=== PATIENT | female | born 1965 | race American Indian/Alaskan Native ===

== ENCOUNTER 2017-01-12 22:21 | Emergency (ER) | payer MEDICARE ==
[2017-01-12 22:58] LABS: Basophils % (Auto) 0.5 % (0.0-1.8); Eosinophils % (Auto) 2.2 % (0.0-4.3); Hematocrit 39.1 % (30.3-42.9); Hemoglobin 12.9 gm/dl (10.1-14.3); Mean Corpuscular HGB Conc 33 % (30-34); Mean Corpuscular Hemoglobin 29 pg (28-32); Mean Corpuscular Volume 89 fl (79-97); Platelet Count 234 K/mm3 (140-440); Red Blood Count 4.39 M/mm3 (3.65-5.03); Red Cell Distribution Width 12.8 % (13.2-15.2); White Blood Count 9.2 K/mm3 (4.5-11.0)
[2017-01-12 23:18] LABS: Anion Gap 19 mmol/L; BUN/Creatinine Ratio 18.33; Blood Urea Nitrogen 11 mg/dL (7-17); Calcium 9.1 mg/dL (8.4-10.2); Carbon Dioxide 22 mmol/L (22-30); Chloride 101.5 mmol/L (98-107); Glucose 156 mg/dL (65-100); Potassium 3.2 mmol/L (3.6-5.0); Sodium 139 mmol/L (137-145)
[2017-01-13 01:35] VITALS: BP 113/70
--- NOTE | 2017-01-13 01:43 | Emergency Department Report ---
ED Shortness of Breath HPI - General Chief Complaint: Dyspnea/Respdistress Stated Complaint: CP/YUAN/BACK PAIN/DRY MOUTH Time Seen by Provider: 01/13/17 01:30 Source: patient Mode of arrival: Ambulatory Limitations: No Limitations - History of Present Illness Initial Comments: This is a 51-year-old female who reports pains on her upper chest wall and the right than the left over the last week or so. She does report increased stressors over the last week as well. She was actually in [place] last week and was hospitalized for 2 days due to her chest wall discomfort. She did have CTA chest performed which was negative for PE or any specific pathology. She did have cardiac stress testing done as well. This was done chemically. She indicated that she developed a rash after having the Chemical injection. She' ll totally signed out AMA due to needing to get home for an important family event. She returns now to the ED to continue the workup. She states she continues to have the same pains in her chest wall region. She states they're intermittent. She states they're worse with movement of her arms and chest in general. She states they are more tender to palpation as well. Stop Aleve could be musculoskeletal but she is not able to take NSAIDs due to peptic ulcer disease. She reports that she doesn't currently have a physician she follows with regularly. She has been taking Tums for her peptic ulcer pain. She states that she has never been on H2 blockers or proton pump inhibitors. She has never had endoscopy either. From a cardiac standpoint patient indicates that she has no family history of heart disease. She personally has no history as well. She denies any history of hypertension or diabetes as well. - Related Data Previous Rx's Medication Instructions Recorded Last Taken Type Loratadine [Claritin] 10 mg PO DAILY #30 tablet 01/13/17 Unknown Rx Omeprazole 40 mg PO DAILY #30 capsule. 01/13/17 Unknown Rx Allergies Allergy/AdvReac Type Severity Reaction Status Date / Time diphenhydramine HCl Allergy Unknown Verified 01/13/17 01:32 [From Benadryl] Iodinated Contrast Media - Allergy Unknown Verified 01/13/17 01:33 IV Dye ketorolac tromethamine Allergy Unknown Verified 01/13/17 01:32 [From Toradol] ED Review of Systems ROS: Stated complaint: CP/YUAN/BACK PAIN/DRY MOUTH Other details as noted in HPI Comment: All other systems reviewed and negative Constitutional: denies: chills, fever Eyes: denies: eye pain, eye discharge, vision change ENT: denies: ear pain, throat pain Respiratory: denies: cough, shortness of breath, wheezing Cardiovascular: chest pain. denies: palpitations Endocrine: no symptoms reported Gastrointestinal: abdominal pain. denies: nausea, diarrhea Genitourinary: denies: urgency, dysuria, discharge Musculoskeletal: denies: back pain, joint swelling, arthralgia Skin: rash. denies: lesions Neurological: denies: headache, weakness, paresthesias Psychiatric: denies: anxiety, depression Hematological/Lymphatic: denies: easy bleeding, easy bruising ED Past Medical Hx - Past Medical History Previous Medical History?: Yes Hx Headaches / Migraines: Yes Additional medical history: Multiple sclerosis, high cholesterol - Surgical History Past Surgical History?: Yes Additional Surgical History: hysterectomy - Social History Smoking Status: Never Smoker Substance Use Type: Alcohol - Medications Home Medications: Home Medications Medication Instructions Recorded Confirmed Last Taken Type Loratadine [Claritin] 10 mg PO DAILY #30 tablet 01/13/17 Unknown Rx Omeprazole 40 mg PO DAILY #30 capsule. 01/13/17 Unknown Rx ED Physical Exam - General Limitations: No Limitations General appearance: alert, in no apparent distress - Head Head exam: Present: atraumatic, normocephalic - Eye Eye exam: Present: normal appearance, EOMI. Absent: scleral icterus - ENT ENT exam: Present: normal exam, normal orophraynx, mucous membranes moist - Neck Neck exam: Present: normal inspection. Absent: tenderness, lymphadenopathy - Respiratory Respiratory exam: Present: normal lung sounds bilaterally. Absent: respiratory distress, wheezes - Cardiovascular Cardiovascular Exam: Present: regular rate, normal rhythm, other (mild tenderness to palpation in the right and upper left chest wall regions. No bony step-off or crepitance noted. No ecchymoses noted.). Absent: systolic murmur, diastolic murmur, rubs, gallop - GI/Abdominal GI/Abdominal exam: Present: soft, normal bowel sounds. Absent: tenderness, guarding - Extremities Exam Extremities exam: Present: normal inspection, full ROM, normal capillary refill. Absent: tenderness, pedal edema, calf tenderness - Back Exam Back exam: Present: normal inspection. Absent: tenderness, CVA tenderness (R), CVA tenderness (L), muscle spasm - Neurological Exam Neurological exam: Present: alert, oriented X3, normal gait - Psychiatric Psychiatric exam: Present: normal affect, normal mood - Skin Skin exam: Present: warm, dry, intact, normal color. Absent: rash ED Course Vital Signs 01/12/17 01/13/17 01/13/17 22:50 01:34 01:35 Temperature 98.3 F 98.1 F Pulse Rate 81 73 Respiratory 18 20 20 Rate Blood Pressure 109/87 Blood Pressure 113/70 [Left] O2 Sat by Pulse 99 96 96 Oximetry - Reevaluation(s) Reevaluation #1: 01/13/17 01:31 EKG at 2232 with sinus rhythm at 75 bpm with normal VA and QRS. Normal ECG. Reevaluation #2: 01/13/17 19:31 Patient does endorse history of lupus. I'm highly suspicious given her presentation that she is having mostly yellow skeletal manifestations of her lupus. This does put her at higher risk for PE as well as cardiac disease. She did have CTA done last week which was negative. She actually is a [place] negative as well. My suspicion is very low for PE as well. From a cardiac standpoint, ECG is unremarkable here. Enzymes are negative. Her presentation does not seem consistent with an ACS presentation. I have a very low suspicion for cardiac etiology. I did encourage the patient compliant with some type of ulcer medication. I did prescribe her omeprazole here today. I did encourage her to follow up with a primary physician for continued care. I did give her several referrals as well. I do have some suspicion of possible psychiatric component with her presentation as well and did encourage relaxation techniques of some type as well. In regards to her lupus, I do not fill qualified to really way and further. I did encourage her to follow up with her primary doctor as well as potentially a manager switch for further evaluation and care of this. For now we'll treat her pain with Tylenol. He is agreeable and compliant with this. ED Medical Decision Making - Lab Data Result diagrams: 01/12/17 22:45 01/12/17 22:45 - Radiology Data interpreted by me: negative Critical care attestation.: If time is entered above; I have spent that time in minutes in the direct care of this critically ill patient, excluding procedure time. ED Disposition Clinical Impression: Chest wall pain, Allergic reaction caused by a drug, Peptic ulcer Disposition: DISCHARGED TO HOME OR SELFCARE Is pt being admited?: No Does the pt Need Aspirin: No Condition: Stable Additional Instructions: Take tylenol as needed for chest pains. Take the claritin for your itchiness. Prescriptions: Loratadine [Claritin] 10 mg PO DAILY #30 tablet Omeprazole 40 mg PO DAILY #30 capsule. Referrals: [facility] [Provider Group] - 3-5 Days [facility] [Provider Group] - 3-5 Days Time of Disposition: 01:53
[2017-01-13] MEDS ORDERED: CLARITIN PO ONE (01:49)
--- NOTE | 2017-01-13 08:16 | XRay Report ---
CHEST 2 VIEWS INDICATION: Shortness of breath. COMPARISON: None similar at this institution. FINDINGS: PA and lateral chest radiographs demonstrate normal cardiomediastinal silhouette. Clear lungs. Intact bones. CONCLUSION: No acute disease in the chest. Thank you for the opportunity to participate in this patient's care.
== END 2017-01-13 02:24 | disposition home or self-care (01) ==
LOC: ED 22:21
DX: T50.905A Adverse effect of unspecified drugs, medicaments and biological substances, initial encounter (principal); R07.89 Other chest pain; K27.9 Peptic ulcer, site unspecified, unspecified as acute or chronic, without hemorrhage or perforation; G43.909 Migraine, unspecified, not intractable, without status migrainosus; E78.00 Pure hypercholesterolemia, unspecified; Z90.710 Acquired absence of both cervix and uterus; Z91.041 Radiographic dye allergy status; Z88.8 Allergy status to other drugs, medicaments and biological substances; Y92.89 Other specified places as the place of occurrence of the external cause
CPT/HCPCS: 36415; 71020; 80048; 84484; 85025; 93005; 93010; 99285

== ENCOUNTER 2017-04-21 21:02 | Emergency (ER) | payer MEDICARE ==
[2017-04-21] MEDS ORDERED: ZOFRAN ONE (21:25)
[2017-04-21] MEDS ORDERED: ZOFRAN IV ONE (21:39)
--- NOTE | 2017-04-22 06:11 | Cat Scan Report ---
FINAL REPORT PROCEDURE: CT HEAD/BRAIN WO CON TECHNIQUE: Computerized tomography of the head was performed without contrast material. HISTORY: headache COMPARISON: No prior studies are available for comparison. FINDINGS: Skull and scalp: Normal. Paranasal sinuses: Normal. Ventricles and subarachnoid spaces: Normal. Cerebrum: No evidence of hemorrhage, acute infarction or mass . Cerebellum and brainstem: No evidence of hemorrhage, acute infarction or mass. Vasculature: Normal. Comments: None. IMPRESSION: There is no evidence of an acute intracranial process
[2017-04-22] MEDS ORDERED: REGLAN IV ONE (08:05)
[2017-04-22] MEDS ORDERED: NACL 0.9% 1000 ML 1,000 ML IV ONE (08:05)
[2017-04-22] MEDS ORDERED: MORPHINE IV ONE (08:05)
--- NOTE | 2017-04-22 09:49 | Emergency Department Report ---
ED Headache HPI - General Chief Complaint: Headache Stated Complaint: MIGRAINE/N/V Source: patient, RN notes reviewed Exam Limitations: no limitations - History of Present Illness Initial Comments: 52 year old female presents to ED with headache and history of migraines. patient states this feels like her typical migraine but worst than the normal pain. patient also states she has N/V and photophobia which she states are regular migraine symptoms for her. patient is stable, neurologically intact, ambulatory with normal gait and in no acute distress. patient has had CT head ordered and performed by triage. Timing/Duration: other (3 days) Quality: moderate, constant, throbbing Head Injury Location: temporal, occipital Recent Head Trauma: chronic headaches, other (history of migraines) Associated Symptoms: nausea/vomiting. denies: confusion, fatigue, facial pain, fever/chills, flushing, loss of consciousness, nasal congestion, nasal drainage , numbness in legs/feet, rash, seizures, sinus infection, stiff neck, vision changes, weakness Allergies/Adverse Reactions: Allergies carisoprodol [From Soma] Allergy (Verified 04/21/17 21:24) Unknown diphenhydramine HCl [From Benadryl] Allergy (Verified 01/13/17 01:32) Unknown ketorolac tromethamine [From Toradol] Allergy (Verified 01/13/17 01:32) Unknown Home Medications: Ambulatory Orders Loratadine [Claritin] 10 mg PO DAILY #30 tablet 01/13/17 Omeprazole 40 mg PO DAILY #30 capsule. 01/13/17 Butalb/Acetamin/Caff 50-325-40 [Fioricet] 1 tab PO Q6HR PRN #20 tab 04/22/17 Ondansetron [Zofran Odt] 4 mg PO BID #10 tab.rapdis 04/22/17 ED Review of Systems ROS: Stated complaint: MIGRAINE/N/V Other details as noted in HPI Constitutional: denies: chills, fever Eyes: denies: eye pain, eye discharge, vision change ENT: denies: ear pain, throat pain Respiratory: denies: cough, shortness of breath, wheezing Cardiovascular: denies: chest pain, palpitations Endocrine: no symptoms reported Gastrointestinal: nausea, vomiting. denies: abdominal pain, diarrhea Genitourinary: denies: urgency, dysuria, discharge Musculoskeletal: denies: back pain, joint swelling, arthralgia Skin: denies: rash, lesions Neurological: headache. denies: weakness, numbness, paresthesias, confusion, abnormal gait, vertigo Psychiatric: denies: anxiety, depression Hematological/Lymphatic: denies: easy bleeding, easy bruising ED Past Medical Hx - Past Medical History Previous Medical History?: Yes Hx Diabetes: Yes (boderline) Hx Headaches / Migraines: Yes Additional medical history: Multiple sclerosis, high cholesterol, Shingles6 - Surgical History Past Surgical History?: Yes Additional Surgical History: hysterectomy. Bladder tact - Social History Smoking Status: Never Smoker Substance Use Type: None - Medications Home Medications: Home Medications Medication Instructions Recorded Confirmed Last Taken Type Loratadine [Claritin] 10 mg PO DAILY #30 tablet 01/13/17 Unknown Rx Omeprazole 40 mg PO DAILY #30 capsule.dr 01/13/17 Unknown Rx Butalb/Acetamin/Caff 50-325-40 1 tab PO Q6HR PRN #20 tab 04/22/17 Unknown Rx [Fioricet] Ondansetron [Zofran Odt] 4 mg PO BID #10 tab.rapdis 04/22/17 Unknown Rx ED Physical Exam - General Limitations: No Limitations General appearance: alert, in no apparent distress - Head Head exam: Present: atraumatic, normocephalic - Eye Eye exam: Present: normal appearance, PERRL, EOMI - ENT ENT exam: Present: normal exam, mucous membranes moist - Neck Neck exam: Present: normal inspection - Respiratory Respiratory exam: Present: normal lung sounds bilaterally. Absent: respiratory distress - Cardiovascular Cardiovascular Exam: Present: regular rate, normal rhythm. Absent: systolic murmur, diastolic murmur, rubs, gallop - GI/Abdominal GI/Abdominal exam: Present: soft, normal bowel sounds. Absent: distended, tenderness - Extremities Exam Extremities exam: Present: normal inspection, full ROM - Back Exam Back exam: Present: normal inspection, full ROM - Neurological Exam Neurological exam: Present: alert, oriented X3, normal gait - Expanded Neurological Exam Expanded Neurological exam: Absent: innattentive Patient oriented to: Present: person, place, time Speech: Present: fluid speech Cranial nerves: EOM's Intact: Normal, Tongue Deviation: Normal, Facial Sensation : Normal Cerebellar function: Finger to Nose: Normal Upper motor neuron: Pronator Drift: Normal Sensory exam: Upper Extremity Light Touch: Normal, Lower Extremity Light Touch: Normal Motor strength exam: RUE: 5, LUE: 5, RLE: 5, LLE: 5 DTR: knee (R): 2+, knee (L): 2+ Best Eye Response ([place]): (4) open spontaneously Best Motor Response ([place]): (6) obeys commands Best Verbal Response ([place]): (5) oriented [place] Total: 15 - Psychiatric Psychiatric exam: Present: normal affect, normal mood - Skin Skin exam: Present: warm, dry, intact, normal color. Absent: rash ED Course Vital Signs 04/21/17 04/22/17 04/22/17 21:16 06:26 08:27 Temperature 98.6 F Pulse Rate 94 H 59 L Respiratory 18 16 16 Rate Blood Pressure 153/100 Blood Pressure 119/68 [Right] O2 Sat by Pulse 97 99 Oximetry ED Medical Decision Making - Radiology Data Radiology results: report reviewed CT brain No evidence of acute intracranial process. - Medical Decision Making 52 year old female presents to ED with migraine x3days. patient has negative imaging study of brain. patient has had 1L of normal saline fluids, antiemetics and IV pain medication. patient is stable, neurologically intact and in no acute distress. patient states her pain has decreased in nature after pain medication and fluids. Critical care attestation.: If time is entered above; I have spent that time in minutes in the direct care of this critically ill patient, excluding procedure time. ED Disposition Clinical Impression: Migraine Qualifiers: Migraine type: with aura Status migrainosus presence: with status migrainosus Intractability: not intractable Qualified Code(s): G43.101 - Migraine with aura , not intractable, with status migrainosus Disposition: DC-01 TO HOME OR SELFCARE Is pt being admited?: No Does the pt Need Aspirin: No Condition: Stable Instructions: Migraine Headache (ED) Prescriptions: Butalb/Acetamin/Caff 50-325-40 [Fioricet] 1 tab PO Q6HR PRN #20 tab PRN Reason: Headache Ondansetron [Zofran Odt] 4 mg PO BID #10 tab.rapdis Referrals: PRIMARY CARE, [Primary Care Provider] - 3-5 Days Forms: Work/School Release Form(ED)
[2017-04-22 09:56] VITALS: BP 116/71
== END 2017-04-22 09:54 | disposition home or self-care (01) ==
LOC: ED 21:02
DX: G43.909 Migraine, unspecified, not intractable, without status migrainosus (principal); E78.00 Pure hypercholesterolemia, unspecified; Z88.6 Allergy status to analgesic agent; Z88.8 Allergy status to other drugs, medicaments and biological substances
CPT/HCPCS: 70450; 96361; 96374; 96375; 99284; J2270; J2405; J2765; J7030

== ENCOUNTER 2017-05-31 01:29 | Emergency (ER) | payer MEDICARE ==
[2017-05-31 02:17] LABS: Alanine Aminotransferase 14 units/L (7-56); Albumin 4.5 g/dL (3.9-5); Albumin/Globulin Ratio 1.3 %; Alkaline Phosphatase 103 units/L (35-129); Anion Gap 24 mmol/L; Blood Urea Nitrogen 28 mg/dL (7-17); Calcium 9.8 mg/dL (8.4-10.2); Carbon Dioxide 20 mmol/L (22-30); Chloride 97.3 mmol/L (98-107); Glucose 90 mg/dL (65-100); Lipase 35 units/L (13-60); Potassium 3.7 mmol/L (3.6-5.0); Sodium 138 mmol/L (137-145); Total Protein 7.9 g/dL (6.3-8.2)
[2017-05-31 02:19] LABS: Basophils % (Auto) 0.9 % (0.0-1.8); Eosinophils % (Auto) 0.4 % (0.0-4.3); Hematocrit 41.9 % (30.3-42.9); Hemoglobin 14.3 gm/dl (10.1-14.3); Mean Corpuscular HGB Conc 34 % (30-34); Mean Corpuscular Hemoglobin 30 pg (28-32); Mean Corpuscular Volume 88 fl (79-97); Platelet Count 252 K/mm3 (140-440); Red Blood Count 4.77 M/mm3 (3.65-5.03); Red Cell Distribution Width 13.1 % (13.2-15.2); White Blood Count 8.1 K/mm3 (4.5-11.0)
[2017-05-31] MEDS ORDERED: ZOFRAN IV ONE (06:32)
[2017-05-31] MEDS ORDERED: NACL 0.9% 1000 ML 1,000 ML IV ONE (06:32)
[2017-05-31] MEDS ORDERED: PEPCID IV ONE (06:33)
--- NOTE | 2017-05-31 07:30 | Emergency Department Report ---
ED General Adult HPI - General Chief complaint: Abdominal Pain Stated complaint: ABD PAIN Time Seen by Provider: 05/31/17 06:15 Source: patient Mode of arrival: Wheelchair Limitations: No Limitations - History of Present Illness Initial comments: Patient is a 52-year-old female past medical history of migraine and multiple sclerosis who presents with abdominal pain. Patient states that she has generalized abdominal pain is an 8 out of 10 and is constant and it has been going on for 1 month. She says nothing makes the abdominal pain better but taking caffeine makes it worse. She states that she is also having some nausea and vomiting. Mom has been nonbloody and nonbilious. She states that she feels like this is an exacerbation of her abdominal pain that she previously had. She's had a CT scan last week. Which was unrevealing. Patient denies having any other symptoms. Severity scale (0 -10): 2 - Related Data Previous Rx's Medication Instructions Recorded Last Taken Type Loratadine [Claritin] 10 mg PO DAILY #30 tablet 01/13/17 Unknown Rx Omeprazole 40 mg PO DAILY #30 capsule. 01/13/17 Unknown Rx Butalb/Acetamin/Caff 50-325-40 1 tab PO Q6HR PRN #20 tab 04/22/17 Unknown Rx [Fioricet] Ondansetron [Zofran Odt] 4 mg PO BID #10 tab.rapdis 04/22/17 Unknown Rx Allergies Allergy/AdvReac Type Severity Reaction Status Date / Time carisoprodol [From Soma] Allergy Unknown Verified 04/21/17 21:24 diphenhydramine HCl Allergy Unknown Verified 01/13/17 01:32 [From Benadryl] ketorolac tromethamine Allergy Unknown Verified 01/13/17 01:32 [From Toradol] ED Review of Systems ROS: Stated complaint: ABD PAIN Other details as noted in HPI Constitutional: denies: chills, fever Eyes: denies: eye pain, eye discharge, vision change ENT: denies: ear pain, throat pain Respiratory: denies: cough, shortness of breath, wheezing Cardiovascular: denies: chest pain, palpitations Endocrine: no symptoms reported Gastrointestinal: abdominal pain, nausea, vomiting Genitourinary: denies: urgency, dysuria, discharge Musculoskeletal: denies: back pain, joint swelling, arthralgia Skin: denies: rash, lesions Neurological: denies: headache, weakness, paresthesias Psychiatric: denies: anxiety, depression Hematological/Lymphatic: denies: easy bleeding, easy bruising ED Past Medical Hx - Past Medical History Previous Medical History?: Yes Hx Diabetes: Yes (boderline) Hx Headaches / Migraines: Yes Additional medical history: Multiple sclerosis, high cholesterol, Shingles6 - Surgical History Past Surgical History?: Yes Additional Surgical History: hysterectomy. Bladder tact - Social History Smoking Status: Never Smoker Substance Use Type: None - Medications Home Medications: Home Medications Medication Instructions Recorded Confirmed Last Taken Type Loratadine [Claritin] 10 mg PO DAILY #30 tablet 01/13/17 Unknown Rx Omeprazole 40 mg PO DAILY #30 capsule.dr 01/13/17 Unknown Rx Butalb/Acetamin/Caff 50-325-40 1 tab PO Q6HR PRN #20 tab 04/22/17 Unknown Rx [Fioricet] Ondansetron [Zofran Odt] 4 mg PO BID #10 tab.rapdis 04/22/17 Unknown Rx ED Physical Exam - General Limitations: No Limitations General appearance: alert, in no apparent distress - Head Head exam: Present: atraumatic, normocephalic - Eye Eye exam: Present: normal appearance - ENT ENT exam: Present: mucous membranes moist - Neck Neck exam: Present: normal inspection - Respiratory Respiratory exam: Present: normal lung sounds bilaterally. Absent: respiratory distress - Cardiovascular Cardiovascular Exam: Present: regular rate, normal rhythm. Absent: systolic murmur, diastolic murmur, rubs, gallop - GI/Abdominal GI/Abdominal exam: Present: soft, normal bowel sounds - Extremities Exam Extremities exam: Present: normal inspection - Back Exam Back exam: Present: normal inspection - Neurological Exam Neurological exam: Present: alert, oriented X3 - Psychiatric Psychiatric exam: Present: normal affect, normal mood - Skin Skin exam: Present: warm, dry, intact, normal color. Absent: rash ED Course Vital Signs 05/31/17 05/31/17 05/31/17 01:33 06:38 06:39 Temperature 99.3 F Pulse Rate 91 H 86 Respiratory 16 18 18 Rate Blood Pressure 113/84 Blood Pressure 118/81 [Right] O2 Sat by Pulse 100 98 Oximetry 05/31/17 08:00 Temperature 98.5 F Pulse Rate 79 Respiratory 18 Rate Blood Pressure Blood Pressure 114/61 [Right] O2 Sat by Pulse 100 Oximetry - Reevaluation(s) Reevaluation #1: 05/31/17 07:30 Patient states that she is nauseous and feels dry I will give patient IV fluids , antiemetics and Pepcid. Reevaluation #2: 05/31/17 09:33 Patient states that she is feeling better I will send patient home to follow up with her primary care provider. ED Medical Decision Making - Lab Data Result diagrams: 05/31/17 01:40 05/31/17 01:40 Laboratory Results - last 72 hr 05/31/17 05/31/17 05/31/17 01:40 01:40 01:40 WBC 8.1 RBC 4.77 Hgb 14.3 Hct 41.9 MCV 88 MCH 30 MCHC 34 RDW 13.1 L Plt Count 252 Lymph % (Auto) 30.6 [facility] [facility] % (Auto) 8.1 H Eos % (Auto) 0.4 Baso % (Auto) 0.9 Lymph # 2.5 [facility] # 0.7 Eos # 0.0 Baso # 0.1 Seg Neutrophils % 60.0 Seg Neutrophils # 4.8 Sodium 138 Potassium 3.7 Chloride 97.3 L Carbon Dioxide 20 L Anion Gap 24 BUN 28 H Creatinine 0.5 L Estimated GFR > 60 BUN/Creatinine Ratio 56.00 Glucose 90 Calcium 9.8 Total Bilirubin 1.10 AST 15 ALT 14 Alkaline Phosphatase 103 Total Protein 7.9 Albumin 4.5 Albumin/Globulin Ratio 1.3 Lipase 35 HCG, Qual Negative - Medical Decision Making Chief medical diagnosis: GERD Differential medical diagnosis: Gastroenteritis, hypokalemia, pancreatitis, hypoglycemia, dehydration, UTI I will get a CBC, CMP, urinalysis, urine , lipase, IV fluids, IV antiemetics and IV Pepcid Patient's symptoms seem to be exacerbation of her chronic abdominal pain and GERD will hydrate and will reassess Critical care attestation.: If time is entered above; I have spent that time in minutes in the direct care of this critically ill patient, excluding procedure time. ED Disposition Clinical Impression: Abdominal pain Qualifiers: Abdominal location: generalized Qualified Code(s): R10.84 - Generalized abdominal pain Nausea and vomiting Qualifiers: Vomiting type: unspecified Vomiting Intractability: unspecified Qualified Code( s): R11.2 - Nausea with vomiting, unspecified Disposition: DC-01 TO HOME OR SELFCARE Is pt being admited?: No Does the pt Need Aspirin: No Condition: Stable Instructions: Abdominal Pain (ED) Referrals: PRIMARY CARE, [Primary Care Provider] - 3-5 Days Time of Disposition: 09:34
[2017-05-31 08:36] VITALS: BP 114/61
== END 2017-05-31 09:50 | disposition home or self-care (01) ==
LOC: ED 01:29
DX: R10.84 Generalized abdominal pain (principal); R11.2 Nausea with vomiting, unspecified; E11.9 Type 2 diabetes mellitus without complications; G43.909 Migraine, unspecified, not intractable, without status migrainosus; E78.00 Pure hypercholesterolemia, unspecified; Z88.8 Allergy status to other drugs, medicaments and biological substances
CPT/HCPCS: 36415; 80053; 83690; 84703; 85025; 96361; 96374; 96375; 99284; J2405; J7030

== ENCOUNTER 2018-02-07 07:02 | Emergency (ER) | payer MEDICARE ==
[2018-02-07 07:46] LABS: Basophils % (Auto) 0.8 % (0.0-1.8); Eosinophils # (Auto) 0.2 K/mm3 (0.0-0.4); Eosinophils % (Auto) 3.3 % (0.0-4.3); Hematocrit 40.2 % (30.3-42.9); Hemoglobin 13.8 gm/dl (10.1-14.3); Lymphocytes # (Auto) 2.6 K/mm3 (1.2-5.4); Mean Corpuscular HGB Conc 34 % (30-34); Mean Corpuscular Hemoglobin 29 pg (28-32); Mean Corpuscular Volume 86 fl (79-97); Monocytes # (Auto) 0.5 K/mm3 (0.0-0.8); Monocytes % (Auto) 9.2 % (0.0-7.3); Platelet Count 192 K/mm3 (140-440); Red Blood Count 4.69 M/mm3 (3.65-5.03); Red Cell Distribution Width 12.6 % (13.2-15.2)
[2018-02-07 08:03] LABS: Alanine Aminotransferase 74 units/L (7-56); Albumin 3.5 g/dL (3.9-5); BUN/Creatinine Ratio 43; Blood Urea Nitrogen 13 mg/dL (7-17); Calcium 9.6 mg/dL (8.4-10.2); Hemolysis Index 13
[2018-02-07] MEDS ORDERED: K-DUR PO ONE (10:36)
--- NOTE | 2018-02-07 10:36 | Emergency Department Report ---
Chief Complaint: Abdominal Pain Stated Complaint: ABD PAIN Time Seen by Provider: 02/07/18 10:28 - HPI History of Present Illness: 52-year-old female presents to the emergency department with complaint of a 2 week history of some body aches, dysuria, lower abdominal discomfort with intermittent constipation and/or diarrhea. She denies any fever, nausea, vomiting, chest pain or shortness of breath. She has a history of multiple sclerosis. She recently moved here from [place] and therefore does not have any local primary care physician or neurologist. She has tried Tylenol for her symptoms without much relief. - ROS Review of Systems: Positive for generalized body aches, abdominal pain, intermittent diarrhea and constipation Negative for fever, nausea, vomiting, chest pain, shortness of breath - Exam Vital Signs: Vital Signs 02/07/18 07:11 Temperature 97.5 F L Pulse Rate 103 H Blood Pressure 147/88 O2 Sat by Pulse 98 Oximetry Physical Exam: Patient is awake and alert and does not appear in any acute distress. Heart and lungs sounds are normal to auscultation. She has some mild tenderness to palpation to the lower abdomen. Bowel sounds are regular. MSE screening note: Focused history and physical exam performed. Due to findings the following was ordered: The patient already has a CBC and a BMP. She appears to have some hypokalemia that will be replaced with potassium chloride. We're waiting for a urinalysis. She will get a abdominal x-ray. ED Medical Decision Making - Lab Data Result diagrams: 02/07/18 07:28 02/07/18 07:28 ED Disposition for MSE Condition: Stable Instructions: Abdominal Pain (ED) Referrals: PRIMARY CARE, [Primary Care Provider] - 3-5 Days
--- NOTE | 2018-02-07 10:45 | Emergency Department Report ---
ED Abdominal Pain HPI - General Chief Complaint: Abdominal Pain Stated Complaint: ABD PAIN Time Seen by Provider: 02/07/18 10:28 Source: patient Mode of arrival: Ambulatory Limitations: No Limitations - History of Present Illness Initial Comments: 52-year-old female presents to the emergency department with complaint of a 2 week history of some body aches, dysuria, lower abdominal discomfort with intermittent constipation and/or diarrhea. She denies any fever, nausea, vomiting, chest pain or shortness of breath. She has a history of multiple sclerosis. She recently moved here from [place] and therefore does not have any local primary care physician or neurologist. She has tried Tylenol for her symptoms without much relief. Patient says she has a history of chronic constipation. She denies any fever or chills. She denies any feeling of her MS flareup. Pain is 4 out of 10 to a abdomen cramping. She denies any back pain.. Patient said she was seen by her primary care physician here once he was a man and she thinks that he did not like her so she didn't go back. Call when her last bowel movement was. Patient reports that her only medical history is multiple sclerosis, high cholesterol and she has a history of shingles. History of bladder talk with hysterectomy. Pain comes and goes nothing makes it better and nothing makes it worse. She says she had a colonoscopy last year when she turned 51 in [place] and it was normal. Complaint: abdominal pain, other (constipation) Onset/Timin -: week(s) Location: diffuse Radiation: none Severity: moderate Severity scale (0 -10): 5 Quality: cramping Consistency: intermittent Improves With: nothing Worsens With: nothing Context: other (patient reports constipation that has been ongoing for years. she says she probably have a urinary tract infection. She is also reporting that she has MS and states she needs to be started on steroid) Associated Symptoms: diarrhea, constipation. denies: nausea, vomiting, fever, chills, dysuria, hematemesis, hematochezia, melena, hematuria, anorexia, syncope Treatments Prior to Arrival: other - Related Data LMP (females 10-50): other (not applicable) Previous Rx's Medication Instructions Recorded Last Taken Type Loratadine [Claritin] 10 mg PO DAILY #30 tablet 01/13/17 Unknown Rx Omeprazole 40 mg PO DAILY #30 capsule. 01/13/17 Unknown Rx Butalb/Acetamin/Caff 50-325-40 1 tab PO Q6HR PRN #20 tab 04/22/17 Unknown Rx [Fioricet] Ondansetron [Zofran Odt] 4 mg PO BID #10 tab.rapdis 04/22/17 Unknown Rx Bisacodyl [Dulcolax suppos] 10 mg NE ONCE 1 Days #1 supp.rect 02/07/18 Unknown Rx Cephalexin [Keflex] 500 mg PO Q8HR 7 Days #21 cap 02/07/18 Unknown Rx Dicyclomine [Bentyl] 20 mg PO Q8H PRN #9 tablet 02/07/18 Unknown Rx Magnesium Citrate [Citrate of 300 ml PO ONCE 1 Days #1 solution 02/07/18 Unknown Rx Magnesia] Potassium Chloride [K-Dur] 20 meq PO BID 2 Days #4 tab 02/07/18 Unknown Rx Allergies Allergy/AdvReac Type Severity Reaction Status Date / Time carisoprodol [From Soma] Allergy Unknown Verified 04/21/17 21:24 diphenhydramine HCl Allergy Unknown Verified 01/13/17 01:32 [From Benadryl] ketorolac tromethamine Allergy Unknown Verified 01/13/17 01:32 [From Toradol] ED Review of Systems ROS: Stated complaint: ABD PAIN Other details as noted in HPI Comment: All other systems reviewed and negative Constitutional: no symptoms reported Eyes: denies: eye pain, eye discharge ENT: denies: ear pain, throat pain, congestion Respiratory: no symptoms reported Cardiovascular: denies: chest pain, palpitations, dyspnea on exertion, edema, syncope, paroxysmal nocturnal dyspnea Gastrointestinal: abdominal pain, diarrhea, constipation. denies: nausea, vomiting, hematemesis, melena, hematochezia Genitourinary: urgency, dysuria. denies: frequency, hematuria, discharge Musculoskeletal: myalgia. denies: back pain, arthralgia Skin: denies: rash Neurological: denies: headache ED Past Medical Hx - Past Medical History Previous Medical History?: Yes Hx Diabetes: Yes (xochitl) Hx Headaches / Migraines: Yes Additional medical history: Multiple sclerosis, high cholesterol, Shingles6 - Surgical History Past Surgical History?: Yes Additional Surgical History: hysterectomy. Bladder tact - Family History Family history: hypertension - Social History Smoking Status: Never Smoker Substance Use Type: None - Medications Home Medications: Home Medications Medication Instructions Recorded Confirmed Last Taken Type Loratadine [Claritin] 10 mg PO DAILY #30 tablet 01/13/17 Unknown Rx Omeprazole 40 mg PO DAILY #30 capsule. 01/13/17 Unknown Rx Butalb/Acetamin/Caff 50-325-40 1 tab PO Q6HR PRN #20 tab 04/22/17 Unknown Rx [Fioricet] Ondansetron [Zofran Odt] 4 mg PO BID #10 tab.rapdis 04/22/17 Unknown Rx Bisacodyl [Dulcolax suppos] 10 mg NE ONCE 1 Days #1 supp.rect 02/07/18 Unknown Rx Cephalexin [Keflex] 500 mg PO Q8HR 7 Days #21 cap 02/07/18 Unknown Rx Dicyclomine [Bentyl] 20 mg PO Q8H PRN #9 tablet 02/07/18 Unknown Rx Magnesium Citrate [Citrate of 300 ml PO ONCE 1 Days #1 solution 02/07/18 Unknown Rx Magnesia] Potassium Chloride [K-Dur] 20 meq PO BID 2 Days #4 tab 02/07/18 Unknown Rx ED Physical Exam - General Limitations: No Limitations General appearance: alert, in no apparent distress - Head Head exam: Present: atraumatic, normocephalic, normal inspection - Eye Eye exam: Present: normal appearance, PERRL, EOMI Pupils: Present: normal accommodation - ENT ENT exam: Present: normal exam, normal orophraynx, mucous membranes moist, TM's normal bilaterally, normal external ear exam - Neck Neck exam: Present: normal inspection, full ROM. Absent: tenderness, lymphadenopathy - Respiratory Respiratory exam: Present: normal lung sounds bilaterally. Absent: respiratory distress, wheezes, rales, rhonchi, stridor, chest wall tenderness, accessory muscle use, decreased breath sounds, prolonged expiratory - Cardiovascular Cardiovascular Exam: Present: normal rhythm, tachycardia, normal heart sounds. Absent: systolic murmur, diastolic murmur - GI/Abdominal GI/Abdominal exam: Present: soft, distended, tenderness (tender to palpate to pelvic area and left lower and mid abdominal quadrant.. Patient reports it feels like pressure and it makes her want to urinate), normal bowel sounds. Absent: guarding, rebound, rigid, organomegaly, mass, bruit, pulsatile mass, hernia - Extremities Exam Extremities exam: Present: normal inspection, full ROM, normal capillary refill , other (no clubbing, cyanosis or edema. +2 pulses to all extremities and no neurovascular compromise). Absent: tenderness, pedal edema, joint swelling, calf tenderness - Back Exam Back exam: Present: normal inspection, full ROM, other (ambulates without any difficulties). Absent: tenderness, CVA tenderness (R), CVA tenderness (L), muscle spasm, paraspinal tenderness, vertebral tenderness, rash noted - Neurological Exam Neurological exam: Present: alert, oriented X3, normal gait - Psychiatric Psychiatric exam: Present: normal affect, normal mood - Skin Skin exam: Present: warm, dry, intact, normal color. Absent: rash ED Course Vital Signs 02/07/18 02/07/18 07:11 15:26 Temperature 97.5 F L 97.8 F Pulse Rate 103 H 82 Respiratory 18 Rate Blood Pressure 147/88 Blood Pressure 122/75 [Left] O2 Sat by Pulse 98 99 Oximetry - Reevaluation(s) Reevaluation #1: 02/07/18 12:21 Patient found to have acute cystitis with hematuria, large amount of stool in colon extending onto rectum. Her CBC was stable. Chemistry stable except she has potassium of 3.2 which was repleted with 30 mEq of potassium in the emergency room. She has glucose of 173 on her chemistry and she said she is borderline diabetic but she ate before she came to the emergency room. Patient' s liver enzymes are elevated and she denies any history of drinking. Protein low. Patient urinalysis also reflect his UTI. I discussed lab work and abdominal x-ray with patient. She'll be started on IV fluid, Rocephin 1 g IV and given Bentyl 40 mg by mouth for abdominal cramping. Reevaluation #2: 02/07/18 13:21 Patient is stable. She is currently given her IV fluid with antibiotic. No distress at present Reevaluation #3: 02/07/18 14:47 Patient is stable and she says she is feeling better. Still states she is feeling bloated into her abdomen but that because she is constipated and I discussed fair. Put her on laxative to include oral and suppository to relieve constipation. ED Medical Decision Making - Lab Data Result diagrams: 02/07/18 07:28 02/07/18 07:28 Lab Results 02/07/18 02/07/18 02/07/18 Range/Units 07:28 07:28 10:42 WBC 5.3 (4.5-11.0) K/mm3 RBC 4.69 (3.65-5.03) M/mm3 Hgb 13.8 (10.1-14.3) gm/dl Hct 40.2 (30.3-42.9) % MCV 86 (79-97) fl MCH 29 (28-32) pg MCHC 34 (30-34) % RDW 12.6 L (13.2-15.2) % Plt Count 192 (140-440) K/mm3 Lymph % (Auto) 48.0 H (13.4-35.0) % [place] % (Auto) 9.2 H (0.0-7.3) % Eos % (Auto) 3.3 (0.0-4.3) % Baso % (Auto) 0.8 (0.0-1.8) % Lymph # 2.6 (1.2-5.4) K/mm3 [place] # 0.5 (0.0-0.8) K/mm3 Eos # 0.2 (0.0-0.4) K/mm3 Baso # 0.0 (0.0-0.1) K/mm3 Seg Neutrophils % 38.7 L (40.0-70.0) % Seg Neutrophils # 2.1 (1.8-7.7) K/mm3 Sodium 143 (137-145) mmol/L Potassium 3.3 L (3.6-5.0) mmol/L Chloride 104.2 (98-107) mmol/L Carbon Dioxide 25 (22-30) mmol/L Anion Gap 17 mmol/L BUN 13 (7-17) mg/dL Creatinine 0.3 L (0.7-1.2) mg/dL Estimated GFR > 60 ml/min BUN/Creatinine Ratio 43 % Glucose 173 H (65-100) mg/dL Calcium 9.6 (8.4-10.2) mg/dL Total Bilirubin 0.50 (0.1-1.2) mg/dL AST 47 H (5-40) units/L ALT 74 H (7-56) units/L Alkaline Phosphatase 140 H (35-129) units/L Total Protein 6.2 L (6.3-8.2) g/dL Albumin 3.5 L (3.9-5) g/dL Albumin/Globulin Ratio 1.3 % Urine Color Yellow (Yellow) Urine Turbidity Clear (Clear) Urine pH 5.0 (5.0-7.0) Ur Specific [place] 1.018 (1.003-1.030) Urine Protein <15 mg/dl (Negative) mg/dL Urine Glucose (UA) Neg (Negative) mg/dL Urine Ketones Neg (Negative) mg/dL Urine Blood Mod (Negative) Urine Nitrite Pos (Negative) Urine Bilirubin Neg (Negative) Urine Urobilinogen < 2.0 (<2.0) mg/dL Ur Leukocyte Esterase Lg (Negative) Urine WBC (Auto) 112.0 H (0.0-6.0) /HPF Urine RBC (Auto) 7.0 (0.0-6.0) /HPF U Epithel Cells (Auto) 9.0 (0-13.0) /HPF Urine Bacteria (Auto) 2+ (Negative) /HPF Urine Mucus Few /HPF Urine culture pending - Radiology Data Radiology results: report reviewed Two-view x-ray of the abdomen shows patient with abundant stool otherwise negative findings. - Medical Decision Making ED course: Patient here reports that she has had 2 weeks symptoms of body aches , urinary burning and also has chronic constipation and she feels like she is constipated because she can't remember the last time she went. Patient has poor diet for discussion of her diet she eats lots of rice and pass the and less fruits and vegetables. Patient does not have any primary care physician or specialist because she says she just moved from [place]. She has a history of multiple sclerosis and she said that she is not on any treatment and does not have a doctor here and she is also requesting to be on steroids. I discussed the patient her lab results, abdominal series itself and I told her that urinalysis shows that she has urinary tract infection, her CBC stable and her chemistry shows she has diminished 3.3 which was repleted in emergency room with 30 mEq of potassium by mouth, her liver enzymes are elevated and patient that she does not have any history of liver problems and she is nontender to palpate in the right upper quadrant on examination without any enlargement of liver. She denies drinking in and said she just drinks socially. Patient visited here on 05/31/2017 showed that she had normal liver enzymes. She denies taking an Tylenol products. Her blood sugar via chemistry is at 173 inches that she is borderline but this was taken after she ate this morning. I discussed the patient regarding her constipation she doesn't have to drink at least 2-3 L of water daily and she will need to increase fiber in her diet. I also discussed with her that she needs to avoid drinking carbonated beverages. 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 Told her that I will not be to start her on steroids for multiple sclerosis because i . Se needs to be treated by neurologists. Patient is given IV fluid normal saline 1 L in emergency room and she is able to tolerate oral fluids well. She was also given Rocephin 1 g IV and Benadryl 40 mg by mouth for abdominal cramping. Discharge home with prescription for magnesium citrate, Dulcolax suppository, Keflex and to increase bananas in her diet to at least 2 per day. She was undescended discharge instructions and discharged home in stable condition. Critical care attestation.: If time is entered above; I have spent that time in minutes in the direct care of this critically ill patient, excluding procedure time. ED Disposition Clinical Impression: Acute cystitis with hematuria, Hypokalemia, Body aches Constipation Qualifiers: Constipation type: unspecified constipation type Qualified Code(s): K59.00 - Constipation, unspecified Abdominal pain Qualifiers: Abdominal location: unspecified location Qualified Code(s): R10.9 - Unspecified abdominal pain Disposition: TO HOME OR SELFCARE Is pt being admited?: No Does the pt Need Aspirin: No Condition: Stable Instructions: Constipation (ED), Urinary Tract Infection in Women (ED), High Fiber Diet (ED), Hypokalemia (ED), Dysuria (ED), Abdominal Pain (ED), Musculoskeletal Pain (ED) Additional Instructions: Please follow up with multiple specialists. See discharge instruction paperwork for referrals. He is calling Friday to schedule appointments. 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 Drink 2-3 L of fluid daily this will include water and noncarbonated beverages See discharge instruction on high fiber diet Take potassium as instructed for 2 days to prevent loss of potassium for your stool Prescriptions: Bisacodyl [Dulcolax suppos] 10 mg NE ONCE 1 Days #1 supp.rect Cephalexin [Keflex] 500 mg PO Q8HR 7 Days #21 cap Dicyclomine [Bentyl] 20 mg PO Q8H PRN #9 tablet PRN Reason: stomach cramping Magnesium Citrate [Citrate of Magnesia] 300 ml PO ONCE 1 Days #1 solution Potassium Chloride [K-Dur] 20 meq PO BID 2 Days #4 tab Referrals: JULIO CESAR FLORES MD [Staff Physician] - 2-3 Days [facility] [Provider Group] - 2-3 Days TITO GIL MD [Staff Physician] - 02/09/18 Forms: Work/School Release Form(ED)
[2018-02-07 11:01] LABS: Bacteria,Urine 2+ /HPF (Negative); Bilirubin,Urine NEG (Negative); Blood,Urine MOD (Negative); Color,Urine Yellow (Yellow); Mucus,Urine FEW /HPF; Protein,Urine <15 mg/dL mg/dL (Negative); Urobilinogen,Urine < 2.0 mg/dL (<2.0)
--- NOTE | 2018-02-07 11:35 | XRay Report ---
XRAY ABDOMEN TWO VIEWS: 02/07/18 10:34:00 CLINICAL: Abdominal pain. COMPARISON:None. FINDINGS: Supine upright views demonstrate a normal bowel gas pattern with a large volume of stool throughout the colon and in the rectum. Minimal small bowel gas. No distended bowel and no air-fluid levels. No mass or suspicious calcifications. The bones and soft tissues are normal. IMPRESSION: Negative abdomen with abundant stool.
[2018-02-07] MEDS ORDERED: NACL 0.9% 1000 ML 1,000 ML IV ONE (11:56)
[2018-02-07] MEDS ORDERED: BENTYL PO ONE (11:57)
[2018-02-07] MEDS ORDERED: ROCEPHIN/NS 1 GM/50 ML 1 GM/50 ML BAG IV ONE (11:57)
[2018-02-07] MEDS ORDERED: cefTRIAXone 1 GM in NACL 0.9% 20 ML IV ONE (12:00)
[2018-02-07 15:27] VITALS: BP 122/75
== END 2018-02-07 15:29 | disposition home or self-care (01) ==
LOC: ED 07:02
DX: K59.00 Constipation, unspecified (principal); E11.9 Type 2 diabetes mellitus without complications; G43.909 Migraine, unspecified, not intractable, without status migrainosus; E78.00 Pure hypercholesterolemia, unspecified; Z90.710 Acquired absence of both cervix and uterus; Z88.8 Allergy status to other drugs, medicaments and biological substances
CPT/HCPCS: 36415; 74019; 80053; 81001; 85025; 96365; 99283; J0696; J7030

== ENCOUNTER 2018-03-04 19:06 | Emergency (ER) | payer MEDICARE ==
[2018-03-04 19:26] VITALS: BP 141/95
== END 2018-03-04 22:10 | disposition left against medical advice (07) ==
LOC: ED 19:06
DX: R42 Dizziness and giddiness (principal); R11.0 Nausea; Z53.21 Procedure and treatment not carried out due to patient leaving prior to being seen by health care provider

== ENCOUNTER 2018-03-09 19:49 | Emergency (ER) | payer MEDICARE ==
[2018-03-09 21:23] LABS: Basophils # (Auto) 0.1 K/mm3 (0.0-0.1); Basophils % (Auto) 0.8 % (0.0-1.8); Eosinophils # (Auto) 0.1 K/mm3 (0.0-0.4); Eosinophils % (Auto) 1.6 % (0.0-4.3); Hematocrit 43.1 % (30.3-42.9); Hemoglobin 14.2 gm/dl (10.1-14.3); Lymphocytes # (Auto) 3.2 K/mm3 (1.2-5.4); Lymphocytes % (Auto) 44.6 % (13.4-35.0); Mean Corpuscular HGB Conc 33 % (30-34); Mean Corpuscular Hemoglobin 28 pg (28-32); Mean Corpuscular Volume 85 fl (79-97); Monocytes # (Auto) 0.7 K/mm3 (0.0-0.8); Monocytes % (Auto) 9.4 % (0.0-7.3); Platelet Count 221 K/mm3 (140-440); Red Blood Count 5.07 M/mm3 (3.65-5.03); Red Cell Distribution Width 13.1 % (13.2-15.2)
[2018-03-09 21:56] LABS: Alanine Aminotransferase 67 units/L (7-56); Albumin 4.3 g/dL (3.9-5); BUN/Creatinine Ratio 43; Blood Urea Nitrogen 13 mg/dL (7-17); Calcium 9.8 mg/dL (8.4-10.2); Hemolysis Index 8; Lipase 53 units/L (13-60)
[2018-03-09 22:02] LABS: Bacteria,Urine 1+ /HPF (Negative); Bilirubin,Urine NEG (Negative); Blood,Urine MOD (Negative); Color,Urine Yellow (Yellow); Mucus,Urine 2+ /HPF; Protein,Urine <15 mg/dL mg/dL (Negative); Urobilinogen,Urine < 2.0 mg/dL (<2.0)
[2018-03-10 05:16] VITALS: BP 127/85
== END 2018-03-10 08:22 | disposition left against medical advice (07) ==
LOC: ED 19:49
DX: R10.30 Lower abdominal pain, unspecified (principal); Z53.21 Procedure and treatment not carried out due to patient leaving prior to being seen by health care provider
CPT/HCPCS: 36415; 80053; 81001; 83690; 85025

== ENCOUNTER 2019-08-11 12:09 | Observation (INO) | payer MEDICARE ==
--- NOTE | 2019-08-11 13:16 | Event Note ---
ED Screening Note Date of service: 08/11/19 Time: 13:15 ED Screening Note: This is a 54 y.o. F. that presents to the ER with N/V/D and epigastric pain for 3 weeks. This initial assessment/diagnostic orders/clinical plan/treatment(s) is/are subject to change based on patients health status, clinical progression and re- assessment by fellow clinical providers in the ED. Further treatment and workup at subsequent clinical providers discretion. Patient/guardian urged not to elope from the ED as their condition may be serious if not clinically assessed and managed. Initial orders include: Labs
[2019-08-11] MEDS ORDERED: ONDANSETRON 4 MG/2 ML INJ IV ONE (14:21)
[2019-08-11] MEDS ORDERED: SODIUM CHLORIDE 0.9% 1000 ML 1,000 ML IV ONE (14:21)
[2019-08-11] MEDS ORDERED: MORPHINE 4 MG/1 ML INJ IV ONE (14:21)
[2019-08-11 15:01] LABS: Basophils % (Auto) 0.7 % (0.0-1.8); Eosinophils # (Auto) 0.1 K/mm3 (0.0-0.4); Eosinophils % (Auto) 1.8 % (0.0-4.3); Hematocrit 41.5 % (30.3-42.9); Hemoglobin 13.9 gm/dl (10.1-14.3); Lymphocytes # (Auto) 3.2 K/mm3 (1.2-5.4); Lymphocytes % (Auto) 49.2 % (13.4-35.0); Mean Corpuscular HGB Conc 34 % (30-34); Mean Corpuscular Volume 84 fl (79-97); Monocytes # (Auto) 0.6 K/mm3 (0.0-0.8); Monocytes % (Auto) 9.5 % (0.0-7.3); Platelet Count 215 K/mm3 (140-440); Red Blood Count 4.91 M/mm3 (3.65-5.03); Red Cell Distribution Width 12.5 % (13.2-15.2)
[2019-08-11 15:05] LABS: Alanine Aminotransferase 41 units/L (7-56); Albumin 3.8 g/dL (3.9-5); BUN/Creatinine Ratio 57; Blood Urea Nitrogen 17 mg/dL (7-17); Calcium 9.9 mg/dL (8.4-10.2); Hemolysis Index 20
[2019-08-11 15:06] LABS: Bilirubin,Urine NEG (Negative); Blood,Urine MOD (Negative); Calcium Oxalate Crystals,Urine 1+; Color,Urine Yellow (Yellow)
[2019-08-11] MEDS ORDERED: MORPHINE 2 MG/1 ML INJ IV ONE (17:13)
--- NOTE | 2019-08-11 17:35 | Cat Scan Report ---
CT ABDOMEN AND PELVIS WITH CONTRAST HISTORY: MAIN: pelvic pain and mid abdominal pain, 100ml Omni 300. COMPARISON: None. TECHNIQUE: CT images of the abdomen and pelvis were obtained following administration of intravenous contrast. All CT scans at this location are performed using CT dose reduction for ALARA by means of automated exposure control. CONTRAST: 100 ml of intravenous contrast administered. FINDINGS: Lungs/bones: Lung bases are clear. There is no acute osseous abnormality or significant degenerative change. Abdomen/pelvis: The liver, gallbladder, spleen, pancreas, adrenals, kidneys, and proximal GI tract a ppear unremarkable. Urinary bladder is unremarkable. Uterus is surgically absent. No pelvic free fluid identified. There is colonic diverticulosis with no acute inflammatory change identified. The terminal ileum is normal. The distal one half of the appendix is slightly dilated measuring 9 mm with mucosal enhancement and fluid-filled appearance. The base of the appendix contains air and appears unremarkable. IMPRESSION: 1. Indeterminate appearance of the distal one half of the appendix--correlate for early/evolving appe ndicitis (tip appendicitis). No surrounding inflammatory change or adenopathy. No free air or abscess formation. The exam is otherwise unremarkable. Signer Name: Raf Dowd MD Signed: 08/11/2019 5:31 PM Workstation Name: [id number]
--- NOTE | 2019-08-11 17:39 | Emergency Department Report ---
ED Abdominal Pain HPI - General Chief Complaint: Nausea/Vomiting/Diarrhea Stated Complaint: ABD PAIN/VOMITING/DIARRHEA Time Seen by Provider: 08/11/19 13:15 Source: patient Mode of arrival: Ambulatory Limitations: No Limitations - History of Present Illness Initial Comments: This is a 54-year-old female nontoxic, well nourished in appearance, no acute s igns of distress presents to the ED with c/o of nausea and vomiting and abdominal pain 3 weeks. Patient describes vomiting as food content and yellow gastric acid. Patient describes abdominal pain as cramping and aching with level of 8/10 to the lower abdominal area and epigastric. Patient denies chest pain, short of breath, fever, chills, headache, stiff neck, numbness or tingling. Patient denies any diarrhea or constipation. Patient denies any recent travels. Patient stated allergies to carisoprodol, Benadryl, and Toradol. MD Complaint: abdominal pain -: week(s) (3) Location: LLQ, RLQ, epigastric Radiation: none Migration to: no migration Severity: moderate Severity scale (0 -10): 8 Quality: cramping, aching Consistency: constant Improves With: nothing Worsens With: nothing Associated Symptoms: nausea, vomiting. denies: diarrhea, fever, chills, constipation, dysuria, hematemesis, hematochezia, melena, hematuria, anorexia, syncope - Related Data Previous Rx's Medication Instructions Recorded Last Taken Type Loratadine [Claritin] 10 mg PO DAILY #30 tablet 01/13/17 Unknown Rx Omeprazole 40 mg PO DAILY #30 capsule. 01/13/17 Unknown Rx Butalb/Acetamin/Caff 50-325-40 1 tab PO Q6HR PRN #20 tab 04/22/17 Unknown Rx [Fioricet] Ondansetron [Zofran Odt] 4 mg PO BID #10 tab.rapdis 04/22/17 Unknown Rx Bisacodyl [Dulcolax suppos] 10 mg SC ONCE 1 Days #1 supp.rect 02/07/18 Unknown Rx Dicyclomine [Bentyl] 20 mg PO Q8H PRN #9 tablet 02/07/18 Unknown Rx Magnesium Citrate [Citrate of 300 ml PO ONCE 1 Days #1 solution 02/07/18 Unknown Rx Magnesia] Potassium Chloride [K-Dur] 20 meq PO BID 2 Days #4 tab 02/07/18 Unknown Rx cephALEXin [Keflex] 500 mg PO Q8HR 7 Days #21 cap 02/07/18 Unknown Rx Allergies Allergy/AdvReac Type Severity Reaction Status Date / Time carisoprodol [From Soma] Allergy Unknown Verified 04/21/17 21:24 diphenhydramine HCl Allergy Unknown Verified 01/13/17 01:32 [From Benadryl] ketorolac tromethamine Allergy Unknown Verified 01/13/17 01:32 [From Toradol] ED Review of Systems ROS: Stated complaint: ABD PAIN/VOMITING/DIARRHEA Other details as noted in HPI Constitutional: denies: chills, fever Eyes: denies: eye pain, eye discharge, vision change ENT: denies: ear pain, throat pain Respiratory: denies: cough, shortness of breath, wheezing Cardiovascular: denies: chest pain, palpitations Endocrine: no symptoms reported Gastrointestinal: abdominal pain, nausea, vomiting. denies: diarrhea Genitourinary: denies: urgency, dysuria, discharge Musculoskeletal: denies: back pain, joint swelling, arthralgia Skin: denies: rash, lesions Neurological: denies: headache, weakness, paresthesias Psychiatric: denies: anxiety, depression Hematological/Lymphatic: denies: easy bleeding, easy bruising ED Past Medical Hx - Past Medical History Previous Medical History?: Yes Hx Hypertension: Yes Hx Diabetes: Yes (boderline) Hx Headaches / Migraines: Yes Additional medical history: Multiple sclerosis, high cholesterol, Shingles6 - Surgical History Past Surgical History?: Yes Additional Surgical History: hysterectomy. Bladder tact - Social History Smoking Status: Current Every Day Smoker Substance Use Type: None - Medications Home Medications: Home Medications Medication Instructions Recorded Confirmed Last Taken Type Loratadine [Claritin] 10 mg PO DAILY #30 tablet 01/13/17 Unknown Rx Omeprazole 40 mg PO DAILY #30 capsule. 01/13/17 Unknown Rx Butalb/Acetamin/Caff 50-325-40 1 tab PO Q6HR PRN #20 tab 04/22/17 Unknown Rx [Fioricet] Ondansetron [Zofran Odt] 4 mg PO BID #10 tab.rapdis 04/22/17 Unknown Rx Bisacodyl [Dulcolax suppos] 10 mg SC ONCE 1 Days #1 supp.rect 02/07/18 Unknown Rx Dicyclomine [Bentyl] 20 mg PO Q8H PRN #9 tablet 02/07/18 Unknown Rx Magnesium Citrate [Citrate of 300 ml PO ONCE 1 Days #1 solution 02/07/18 Unknown Rx Magnesia] Potassium Chloride [K-Dur] 20 meq PO BID 2 Days #4 tab 02/07/18 Unknown Rx cephALEXin [Keflex] 500 mg PO Q8HR 7 Days #21 cap 02/07/18 Unknown Rx ED Physical Exam - General Limitations: No Limitations General appearance: alert, in no apparent distress - Head Head exam: Present: atraumatic, normocephalic - Eye Eye exam: Present: normal appearance - Neck Neck exam: Present: normal inspection, full ROM. Absent: tenderness, meningismus, lymphadenopathy - Respiratory Respiratory exam: Present: normal lung sounds bilaterally. Absent: respiratory distress, wheezes, rales, rhonchi, stridor, chest wall tenderness, accessory muscle use, decreased breath sounds, prolonged expiratory - Cardiovascular Cardiovascular Exam: Present: regular rate, normal rhythm, normal heart sounds - GI/Abdominal GI/Abdominal exam: Present: soft, tenderness (epigastric area and RLQ), normal bowel sounds. Absent: distended, guarding, rebound, rigid, diminished bowel sounds - Extremities Exam Extremities exam: Present: normal inspection, full ROM, normal capillary refill. Absent: tenderness - Back Exam Back exam: Present: normal inspection, full ROM. Absent: tenderness, CVA tenderness (R), CVA tenderness (L), muscle spasm, paraspinal tenderness, vertebral tenderness, rash noted - Neurological Exam Neurological exam: Present: alert, oriented X3, normal gait - Psychiatric Psychiatric exam: Present: normal affect, normal mood - Skin Skin exam: Present: warm, dry, intact, normal color. Absent: rash ED Course Vital Signs 08/11/19 08/11/19 13:15 17:11 Temperature 98.9 F Pulse Rate 94 H 104 H Respiratory 18 18 Rate Blood Pressure 152/95 Blood Pressure 110/68 [Right] O2 Sat by Pulse 96 98 Oximetry - Reevaluation(s) Reevaluation #1: 08/11/19 17:36 Patient is speaking in full sentences with no signs of distress noted. Reevaluation #2: 11/06/19 17:59 Patient is still in significant amount of pain so I will give patient Dilaudid. Patient otherwise is stable. - Consultations Consultation #1: 08/11/19 17:50 Patient has been consulted with Dr. Paulson about patient history, physical exam, and labs/CT results and agrees for admission. Consultation #2: 08/11/19 18:00 Patient has been consulted with Dr. Maribell V about patient history, physical exam, and labs/CT results and accepts patient to services. ED Medical Decision Making - Lab Data Result diagrams: 08/11/19 14:11 08/11/19 14:11 - Medical Decision Making This is a 54-year-old male that presents with BV, UTI, and appendicitis. Patient is stable and was examined by me. Patient was consulted with Dr. Paulson and agrees for admission. Patient accepted by Dr. Maribell V (hospitalist). Patient placed on NPO. Received Zosyn IV, Normal saline, and zofran with morphine. CT scan obtained and dictated by radiologist. Patient was notified of the results with no questions noted by the patient. At time of admission, the patient does not seem toxic or ill in appearance. No acute signs of distress noted. Patient agrees to admission treatment plan of care. No further questions noted by the patient. - Differential Diagnosis diverticulitis, appendicitis Critical care attestation.: If time is entered above; I have spent that time in minutes in the direct care of this critically ill patient, excluding procedure time. ED Disposition Clinical Impression: Bacterial vaginosis Nausea & vomiting Qualifiers: Vomiting type: unspecified Vomiting Intractability: non-intractable Qualified Code(s): R11.2 - Nausea with vomiting, unspecified Appendicitis Qualifiers: Appendicitis type: acute appendicitis Acute appendicitis type: with localized peritonitis Appendicitis gangrene presence: without gangrene Appendicitis perforation presence: without perforation Appendicitis abscess presence: without abscess Qualified Code(s): K35.30 - Acute appendicitis with localized peritoni tis, without perforation or gangrene Disposition: OP ADMIT IP TO THIS HOSP Is pt being admited?: Yes Condition: Stable Referrals: MANDEEP GARCIA MD [Primary Care Provider] - 3-5 Days
[2019-08-11] MEDS ORDERED: PIPERACIL/TAZOBACTA 4.5/NS 100 4.5 GM/100 ML VIAL IV ONE (17:58)
[2019-08-11] MEDS ORDERED: HYDROmorphone 1 MG/1 ML INJ IV ONE (18:00)
[2019-08-11] MEDS ORDERED: ACETAMINOPHEN 325 MG TAB PO PRN (19:58)
[2019-08-11] MEDS ORDERED: DEXTROSE 50% IN WATER (25GM) 50 ML SYRINGE IV PRN (19:58)
[2019-08-11] MEDS ORDERED: METOCLOPRAMIDE 10 MG/2 ML INJ IV PRN (19:58)
[2019-08-11] MEDS ORDERED: ONDANSETRON 4 MG/2 ML INJ IV PRN (19:58)
[2019-08-11] MEDS ORDERED: SODIUM CHLORIDE 0.9% 1000 ML 1,000 ML IV SCH (20:00)
[2019-08-11] MEDS: MORPHINE 2 MG/1 ML INJ IV PRN (20:10)
--- NOTE | 2019-08-11 21:44 | History and Physical Report ---
History of Present Illness Date of examination: 08/11/19 Date of admission: 08/11/19 18:15 Chief complaint: N/V, Abdominal pain History of present illness: 54-year-old female who is an ongoing smoker with history of hypertension, diabetes (? Borderline), and multiple sclerosis who presents to [facility] ED with complaints of nausea, vomiting and abdominal pain for the past 3 weeks. Patient states that her abdominal pain has progressively worsened over the past 3 weeks. Pt states she has 8/10 sharp epigastric pain with radiation to RLQ. The pain is constant and is relieved with pain meds and rest. She also complains of emesis containing large food particles. Approximately one week ago, pt presented to ED at [facility] with similar complaints. Per pt "they didn't find anything and sent me home without any prescriptions". Additionally pt c/o of soft stools for the past 3 days. She denies diarrhea. Denies: fever, headache, CP, SOB, cough, hemoptysis, dysuria, or hematuria Past History Past Medical History: diabetes, hypertension, hyperlipidemia, migraines, other (multiple sclerosis, shingles) Past Surgical History: hysterectomy, Other (Bladder surgery) Social history: , smoking (current everday smoker) Family history: hypertension Medications and Allergies Allergies Allergy/AdvReac Type Severity Reaction Status Date / Time carisoprodol [From Soma] Allergy Unknown Verified 04/21/17 21:24 diphenhydramine HCl Allergy Unknown Verified 01/13/17 01:32 [From Benadryl] ketorolac tromethamine Allergy Unknown Verified 01/13/17 01:32 [From Toradol] Home Medications Medication Instructions Recorded Confirmed Last Taken Type Loratadine [Claritin] 10 mg PO DAILY #30 tablet 01/13/17 Unknown Rx Omeprazole 40 mg PO DAILY #30 capsule. 01/13/17 Unknown Rx Butalb/Acetamin/Caff 50-325-40 1 tab PO Q6HR PRN #20 tab 04/22/17 Unknown Rx [Fioricet] Ondansetron [Zofran Odt] 4 mg PO BID #10 tab.rapdis 04/22/17 Unknown Rx Bisacodyl [Dulcolax suppos] 10 mg [place] ONCE 1 Days #1 supp.rect 02/07/18 Unknown Rx Dicyclomine [Bentyl] 20 mg PO Q8H PRN #9 tablet 02/07/18 Unknown Rx Magnesium Citrate [Citrate of 300 ml PO ONCE 1 Days #1 solution 02/07/18 Unknown Rx Magnesia] Potassium Chloride [K-Dur] 20 meq PO BID 2 Days #4 tab 02/07/18 Unknown Rx cephALEXin [Keflex] 500 mg PO Q8HR 7 Days #21 cap 02/07/18 Unknown Rx Active Meds: Active Medications Acetaminophen (Tylenol) 650 mg PO Q4H PRN PRN Reason: Pain MILD(1-3)/Fever >100.5/JOHNSON Dextrose (D50w (25gm) Syringe) 50 ml IV Q30MIN PRN PRN Reason: Hypoglycemia Sodium Chloride (Nacl 0.9% 1000 Ml) 1,000 mls @ 100 mls/hr IV DIRECT QUANG Insulin Human Lispro (Humalog) 0 unit SUB-Q Q6HR QUANG; Protocol Metoclopramide HCl (Reglan) 10 mg IV Q6H PRN PRN Reason: Nausea And Vomiting Morphine Sulfate (Morphine) 2 mg IV Q4H PRN PRN Reason: Pain, Moderate (4-6) Last Admin: 08/11/19 20:10 Dose: 2 mg Documented by: Ondansetron HCl (Zofran) 4 mg IV Q6H PRN PRN Reason: Nausea And Vomiting Pantoprazole Sodium (Protonix) 40 mg IV BID QUANG Sodium Chloride (Sodium Chloride Flush Syringe 10 Ml) 10 ml IV BID QUANG Sodium Chloride (Sodium Chloride Flush Syringe 10 Ml) 10 ml IV PRN PRN PRN Reason: LINE FLUSH Review of Systems All systems: negative Gastrointestinal: abdominal pain, nausea, vomiting, other (soft stools) Exam - Physical Exam Narrative exam: General appearance: Present: No acute distress, alert and orientedx3, well- developed, well-nourished, pleasant, adult female - EENT Eyes: Present: PERRL, EOM intact ENT: hearing intact, normal dentition - Neck Neck: Present: supple, normal ROM - Respiratory Respiratory effort: Non-labored Respiratory: bilateral: CTA bilaterally - Cardiovascular Heart rate:94 (bpm) Rhythm:SR Heart Sounds: Present: S1, S2. - Extremities Extremities: no ischemia, pulses intact - Peripheral Assessment Peripheral Pulses: within normal limits - Abdominal General gastrointestinal: soft, right lower quadrant; left lower quadrant; and epigastric tenderness, normal bowel sounds, - Integumentary Integumentary: Present: warm, dry - Musculoskeletal Musculoskeletal: normal gait -Neurological Neurological: CN II-XII grossly intact - Psychiatric Psychiatric: cooperative - Constitutional Vitals: Temp Pulse Resp BP Pulse Ox 97.5 F L 83 18 132/86 96 08/11/19 20:48 08/11/19 20:48 08/11/19 20:48 08/11/19 20:48 08/11/19 20:48 Results - Labs CBC & Chem 7: 08/11/19 14:11 08/11/19 14:11 Labs: Laboratory Last Values WBC 6.4 K/mm3 (4.5-11.0) 08/11/19 14:11 RBC 4.91 M/mm3 (3.65-5.03) 08/11/19 14:11 Hgb 13.9 gm/dl (10.1-14.3) 08/11/19 14:11 Hct 41.5 % (30.3-42.9) 08/11/19 14:11 MCV 84 fl (79-97) 08/11/19 14:11 MCH 28 pg (28-32) 08/11/19 14:11 MCHC 34 % (30-34) 08/11/19 14:11 RDW 12.5 % (13.2-15.2) L 08/11/19 14:11 Plt Count 215 K/mm3 (140-440) 08/11/19 14:11 Lymph % (Auto) 49.2 % (13.4-35.0) H 08/11/19 14:11 [place] % (Auto) 9.5 % (0.0-7.3) H 08/11/19 14:11 Eos % (Auto) 1.8 % (0.0-4.3) 08/11/19 14:11 Baso % (Auto) 0.7 % (0.0-1.8) 08/11/19 14:11 Lymph # 3.2 K/mm3 (1.2-5.4) 08/11/19 14:11 [place] # 0.6 K/mm3 (0.0-0.8) 08/11/19 14:11 Eos # 0.1 K/mm3 (0.0-0.4) 08/11/19 14:11 Baso # 0.0 K/mm3 (0.0-0.1) 08/11/19 14:11 Seg Neutrophils % 38.8 % (40.0-70.0) L 08/11/19 14:11 Seg Neutrophils # 2.5 K/mm3 (1.8-7.7) 08/11/19 14:11 Sodium 140 mmol/L (137-145) 08/11/19 14:11 Potassium 3.9 mmol/L (3.6-5.0) 08/11/19 14:11 Chloride 102.2 mmol/L (98-107) 08/11/19 14:11 Carbon Dioxide 24 mmol/L (22-30) 08/11/19 14:11 Anion Gap 18 mmol/L 08/11/19 14:11 BUN 17 mg/dL (7-17) 08/11/19 14:11 Creatinine 0.3 mg/dL (0.7-1.2) L 08/11/19 14:11 Estimated GFR > 60 ml/min 08/11/19 14:11 BUN/Creatinine Ratio 57 % 08/11/19 14:11 Glucose 96 mg/dL (65-100) 08/11/19 14:11 Hemoglobin A1c 5.9 % (4-6) 08/11/19 14:11 Calcium 9.9 mg/dL (8.4-10.2) 08/11/19 14:11 Total Bilirubin 0.70 mg/dL (0.1-1.2) 08/11/19 14:11 AST 33 units/L (5-40) 08/11/19 14:11 ALT 41 units/L (7-56) 08/11/19 14:11 Alkaline Phosphatase 205 units/L (35-129) H 08/11/19 14:11 Total Protein 6.9 g/dL (6.3-8.2) 08/11/19 14:11 Albumin 3.8 g/dL (3.9-5) L 08/11/19 14:11 Albumin/Globulin Ratio 1.2 % 08/11/19 14:11 Lipase 29 units/L (13-60) 08/11/19 14:11 Urine Color Yellow (Yellow) 08/11/19 Unknown Urine Turbidity Turbid (Clear) 08/11/19 Unknown Urine pH 5.0 (5.0-7.0) 08/11/19 Unknown Ur Specific [place] 1.026 (1.003-1.030) 08/11/19 Unknown Urine Protein 30 mg/dl mg/dL (Negative) 08/11/19 Unknown Urine Glucose (UA) Neg mg/dL (Negative) 08/11/19 Unknown Urine Ketones Neg mg/dL (Negative) 08/11/19 Unknown Urine Blood Mod (Negative) 08/11/19 Unknown Urine Nitrite Neg (Negative) 08/11/19 Unknown Urine Bilirubin Neg (Negative) 08/11/19 Unknown Urine Urobilinogen 4.0 mg/dL (<2.0) 08/11/19 Unknown Ur Leukocyte Esterase Lg (Negative) 08/11/19 Unknown Urine WBC (Auto) 16.0 /HPF (0.0-6.0) H 08/11/19 Unknown Urine RBC (Auto) 2.0 /HPF (0.0-6.0) 08/11/19 Unknown U Epithel Cells (Auto) < 1.0 /HPF (0-13.0) 08/11/19 Unknown Calcium Oxalate Crystal 1+ 08/11/19 Unknown - Imaging and Cardiology Imaging and Cardiology: CT Abd/Pelvis FINDINGS: Lungs/bones: Lung bases are clear. There is no acute osseous abnormality or significant degenerative change. Abdomen/pelvis: The liver, gallbladder, spleen, pancreas, adrenals, kidneys, and proximal GI tract appear unremarkable. Urinary bladder is unremarkable. Uterus is surgically absent. No pelvic free fluid identified. There is colonic diverticulosis with no acute inflammatory change identified. The terminal ileum is normal. The distal one half of the appendix is slightly dilated measuring 9 mm with mucosal enhancement and fluid- filled appearance. The base of the appendix contains air and appears unremarkable. IMPRESSION: 1. Indeterminate appearance of the distal one half of the appendix--correlate for early/evolving appendicitis (tip appendicitis). No surrounding inflammatory change or adenopathy. No free air or abscess formation. The exam is otherwise unremarkable. Assessment and Plan Assessment and plan: 54-year-old female who is an ongoing smoker with history of hypertension, diabetes (? Borderline), and multiple sclerosis who presents to [facility] ED with complaints of nausea, vomiting and abdominal pain for the past 3 weeks. At the time of my examination pt is sitting up in stretcher with no s/s of aacute distress. She is able to maintain conversation. Her is present at the bedside. Appendicitis -CT Abdomen/ Plevis shows early/evolving appendicitis (tip appendicitis). No surrounding inflammatory change or adenopathy. No free air or abscess formation. -Positive Jean Baptiste's sign -NPO -IVF -Start cefepime and Flagyl -Continue supportive care -General Surgevy (Khurram) consulted with plans to see pt in am Urinary tract infection -Urine WBC 16 -Urine culture pending -Start on IV Abx DM2 -?? Borderline -POC BG monitoring -SSI coverage prn -Hgb A1c pending HTN -Monitor BP -Resume home antihypertensive meds once medication reconciliation has been completed -IV hydralazine when necessary Tobacco abuse -Current every day smoker -Counseled for cessation -Nicotine patch when necessary Hx Multiple Sclerosis -Continue supportive care DVT PPX -On Lovenox Advance Directives: No VTE prophylaxis?: Chemical Plan of care discussed with patient/family: Yes
[2019-08-11] MEDS: PANTOPRAZOLE 40 MG INJ IV SCH (21:54)
[2019-08-11] MEDS ORDERED: hydrALAZINE 20 MG/1 ML INJ IV PRN (21:56)
[2019-08-12] MEDS: INSULIN LISPRO 100 UNIT/ML SUB-Q SCH ×3 (01:53→12:21)
[2019-08-12] MEDS: MORPHINE 2 MG/1 ML INJ IV PRN (04:32)
[2019-08-12 06:36] LABS: Basophils % (Auto) 0.4 % (0.0-1.8); Eosinophils # (Auto) 0.1 K/mm3 (0.0-0.4); Eosinophils % (Auto) 2.9 % (0.0-4.3); Hematocrit 35.8 % (30.3-42.9); Lymphocytes # (Auto) 1.9 K/mm3 (1.2-5.4); Lymphocytes % (Auto) 37.8 % (13.4-35.0); Mean Corpuscular HGB Conc 34 % (30-34); Mean Corpuscular Volume 85 fl (79-97); Monocytes # (Auto) 0.3 K/mm3 (0.0-0.8); Platelet Count 174 K/mm3 (140-440); Red Cell Distribution Width 12.6 % (13.2-15.2)
[2019-08-12 07:02] LABS: BUN/Creatinine Ratio 47; Blood Urea Nitrogen 14 mg/dL (7-17); Hemolysis Index 6
[2019-08-12] MEDS: ENOXAPARIN 40 MG/0.4 ML INJ SUB-Q SCH ×2 (08:13→10:36)
[2019-08-12] MEDS: NICOTINE 14 MG/24 HR PATCH TD SCH ×3 (08:13→10:54)
[2019-08-12] MEDS: PANTOPRAZOLE 40 MG INJ IV SCH ×2 (08:14→10:36)
--- NOTE | 2019-08-12 09:39 | Consultation ---
History of Present Illness Consult date: 08/12/19 Reason for consult: abdominal pain Requesting physician: MONSTER PICKENS Chief complaint: abdominal pain - History of present illness History of present illness: 54yo F with recurrent abdominal pain since 2004. She presents with a two-week history of daily abdominal pain more so in the lower abdomen. She has had recurrent UTIs over the years and the pain from the UTI is similar to the pain that she has now. Denies any dysuria. She has never been seen by a urologist. In the past, she would have the pain a few times a year. This time it has been present for 2 weeks. 2 weeks ago, she went to [facility] for evaluation, but they did not check a urine. She was sent home from the ER. The only associated symptom is chills. Denies fevers, nausea, vomiting. Patient also has a history of constipation and diverticula. She has a bowel movement every few days. She has to strain. Past History Past Medical History: migraines, other (multiple sclerosis, shingles, constipation, diverticula) Past Surgical History: hysterectomy, Other (Bladder surgery) Social history: . denies: smoking (stopped recently) Family history: hypertension Medications and Allergies Allergies Allergy/AdvReac Type Severity Reaction Status Date / Time carisoprodol [From Soma] Allergy Unknown Verified 04/21/17 21:24 diphenhydramine HCl Allergy Unknown Verified 01/13/17 01:32 [From Benadryl] ketorolac tromethamine Allergy Unknown Verified 01/13/17 01:32 [From Toradol] Home Medications Medication Instructions Recorded Confirmed Last Taken Type Escitalopram 20 mg PO QHS 08/12/19 08/12/19 08/10/19 History Active Meds: Active Medications Acetaminophen (Tylenol) 650 mg PO Q4H PRN PRN Reason: Pain MILD(1-3)/Fever >100.5/JOHNSON Dextrose (D50w (25gm) Syringe) 50 ml IV Q30MIN PRN PRN Reason: Hypoglycemia Enoxaparin Sodium (Enoxaparin) 40 mg SUB-Q DAILY QUANG Last Admin: 08/12/19 08:13 Dose: 40 mg Documented by: Hydralazine HCl (Apresoline) 10 mg IV Q4H PRN PRN Reason: Blood Pressure Hydroxyzine HCl (Vistaril) 25 mg IM Q6H PRN PRN Reason: Itching Sodium Chloride (Nacl 0.9% 1000 Ml) 1,000 mls @ 100 mls/hr IV DIRECT [facility] Last Admin: 08/11/19 21:45 Dose: 100 mls/hr Documented by: Ceftriaxone Sodium (Rocephin/Ns 1 Gm/50 Ml) 1 gm in 50 mls @ 100 mls/hr IV Q24HR [facility]; Protocol Insulin Human Lispro (Humalog) 0 unit SUB-Q Q6HR [facility]; Protocol Last Admin: 08/12/19 07:32 Dose: Not Given Documented by: Metoclopramide HCl (Reglan) 10 mg IV Q6H PRN PRN Reason: Nausea And Vomiting Morphine Sulfate (Morphine) 2 mg IV Q4H PRN PRN Reason: Pain, Moderate (4-6) Last Admin: 08/12/19 04:32 Dose: 2 mg Documented by: Nicotine (Habitrol) 14 mg TD QDAY [facility] Last Admin: 08/12/19 08:13 Dose: 14 mg Documented by: Ondansetron HCl (Zofran) 4 mg IV Q6H PRN PRN Reason: Nausea And Vomiting Pantoprazole Sodium (Protonix) 40 mg IV BID [facility] Last Admin: 08/12/19 08:14 Dose: 40 mg Documented by: Sodium Chloride (Sodium Chloride Flush Syringe 10 Ml) 10 ml IV BID [facility] Last Admin: 08/12/19 08:14 Dose: 10 ml Documented by: Sodium Chloride (Sodium Chloride Flush Syringe 10 Ml) 10 ml IV PRN PRN PRN Reason: LINE FLUSH Review of Systems - Constitutional chills, chronic pain, no fever - Cardiovascular no chest pain - Respiratory no cough - Gastrointestinal abdominal pain, constipation, no nausea, no vomiting, no hematemesis, no coffee ground emesis, no BRBPR, no melena, no hematochezia, no dyspepsia/bloating - Genitourinary Genitourinary: no dysuria - Muskuloskeletal no low back pain - Integumentary no rash, no pruritis, no sores, no wounds Exam Vital Signs Temp Pulse Resp BP Pulse Ox 98.9 F 94 H 18 152/95 96 08/11/19 13:15 08/11/19 13:15 08/11/19 13:15 08/11/19 13:15 08/11/19 13:15 - General physical appearance Positive: no distress, no pain, other (pleasant) - Eyes Positive: normal occular movement - Respiratory Positive: normal expansion, normal respiratory effort, clear to auscultation - Cardiovascular Rhythm: regular - Abdomen Abdomen: Present: soft, tender (in epigastric area and across lower abdomen), bowel sounds normal. Absent: distended, masses, guarding, rigid, wound - Integumentary no rash, no growths, no abnormal pigmentation - Neurologic Neurologic: alert and oriented to time, place and person - Psychiatric Psychiatric: appropriate mood/affect, intact judgment & insight, cooperative Results - Labs 08/12/19 05:57 08/12/19 05:57 Abnormal lab results 08/11/19 08/11/19 08/11/19 Range/Units 14:11 14:11 22:04 RDW 12.5 L (13.2-15.2) % Lymph % (Auto) 49.2 H (13.4-35.0) % [place] % (Auto) 9.5 H (0.0-7.3) % Seg Neutrophils % 38.8 L (40.0-70.0) % Chloride (98-107) mmol/L Creatinine 0.3 L (0.7-1.2) mg/dL POC Glucose 122 H (70-105) Alkaline Phosphatase 205 H (35-129) units/L Albumin 3.8 L (3.9-5) g/dL Urine WBC (Auto) (0.0-6.0) /HPF 08/11/19 08/12/19 08/12/19 Range/Units Unknown 05:57 05:57 RDW 12.6 L (13.2-15.2) % Lymph % (Auto) 37.8 H (13.4-35.0) % [place] % (Auto) (0.0-7.3) % Seg Neutrophils % (40.0-70.0) % Chloride 107.9 H (98-107) mmol/L Creatinine 0.3 L (0.7-1.2) mg/dL POC Glucose (70-105) Alkaline Phosphatase (35-129) units/L Albumin (3.9-5) g/dL Urine WBC (Auto) 16.0 H (0.0-6.0) /HPF Diabetes panel 08/11/19 08/11/19 08/12/19 Range/Units 14:11 14:11 05:57 Sodium 140 143 (137-145) mmol/L Potassium 3.9 3.9 (3.6-5.0) mmol/L Chloride 102.2 107.9 H (98-107) mmol/L Carbon Dioxide 24 23 (22-30) mmol/L BUN 17 14 (7-17) mg/dL Creatinine 0.3 L 0.3 L (0.7-1.2) mg/dL Glucose 96 87 (65-100) mg/dL Hemoglobin A1c 5.9 (4-6) % Calcium 9.9 9.0 (8.4-10.2) mg/dL AST 33 (5-40) units/L ALT 41 (7-56) units/L Alkaline Phosphatase 205 H (35-129) units/L Total Protein 6.9 (6.3-8.2) g/dL Albumin 3.8 L (3.9-5) g/dL Calcium panel 08/11/19 08/12/19 Range/Units 14:11 05:57 Calcium 9.9 9.0 (8.4-10.2) mg/dL Albumin 3.8 L (3.9-5) g/dL Pituitary panel 08/11/19 08/12/19 Range/Units 14:11 05:57 Sodium 140 143 (137-145) mmol/L Potassium 3.9 3.9 (3.6-5.0) mmol/L Chloride 102.2 107.9 H (98-107) mmol/L Carbon Dioxide 24 23 (22-30) mmol/L BUN 17 14 (7-17) mg/dL Creatinine 0.3 L 0.3 L (0.7-1.2) mg/dL Glucose 96 87 (65-100) mg/dL Calcium 9.9 9.0 (8.4-10.2) mg/dL Adrenal panel 08/11/19 08/12/19 Range/Units 14:11 05:57 Sodium 140 143 (137-145) mmol/L Potassium 3.9 3.9 (3.6-5.0) mmol/L Chloride 102.2 107.9 H (98-107) mmol/L Carbon Dioxide 24 23 (22-30) mmol/L BUN 17 14 (7-17) mg/dL Creatinine 0.3 L 0.3 L (0.7-1.2) mg/dL Glucose 96 87 (65-100) mg/dL Calcium 9.9 9.0 (8.4-10.2) mg/dL Total Bilirubin 0.70 (0.1-1.2) mg/dL AST 33 (5-40) units/L ALT 41 (7-56) units/L Alkaline Phosphatase 205 H (35-129) units/L Total Protein 6.9 (6.3-8.2) g/dL Albumin 3.8 L (3.9-5) g/dL Assessment and Plan - Patient Problems (1) Abdominal pain Current Visit: Yes Status: Acute Qualifiers: Abdominal location: generalized Qualified Code(s): R10.84 - Generalized abdominal pain Plan to address problem: Pt stable. Patient's history and exam are not consistent with appendicitis. CT scan is not impressive for appendicitis. Her pain is most likely related to another UTI. Urinalysis is suggestive of infection. Cultures are pending. Would treat for presumed UTI. Patient may have a diet. She would benefit from outpatient evaluation by urology as she has had multiple recurrent UTIs since 2004. Ok to d/c when cleared by medicine. f/u prn. Please call with questions. Time=30min (2) Constipation Current Visit: Yes Status: Chronic Qualifiers: Constipation type: unspecified constipation type Qualified Code(s): K59.00 - Constipation, unspecified Plan to address problem: Pt stable. This is a chronic issue for her. At this time, the CT is not impressive for severe constipation. However, her history is very consistent with constipation and the sequela of diverticula. I have recommended to her to start a daily fiber supplement. She should increase the dose until she is having easy, daily bowel movements. If she has not had a recent colonoscopy, would recommend outpatient referral to GI.
[2019-08-12] MEDS ORDERED: cefTRIAXone/NS 1 GM/50 ML 1 GM/50 ML BAG IV SCH (10:00)
[2019-08-12] MEDS ORDERED: hydrOXYzine HCL 100 MG/2 ML INJ IM PRN (11:00)
[2019-08-12 12:27] VITALS: BP 123/73
--- NOTE | 2019-08-12 17:01 | Discharge Summary ---
Providers - Providers Date of Admission: 08/11/19 18:15 Date of discharge: 08/12/19 Attending physician: JAIMIE BARRIOS 08/11/19 18:16 Consult to Physician [CONS] Stat Comment: MONSTER Dasilva/DR PAULSON @[id number] Consulting Provider: TRACIE PAULSON Physician Instructions: Reason For Exam: appendicitis Primary care physician: MANDEEP GARCIA Hospitalization Condition: Fair Hospital course: Patient is 54-year-old female who is an ongoing smoker with history of hypertension, diabetes, and multiple sclerosis who presented to [facility] ED with c omplaints of nausea, vomiting and abdominal pain for 3 weeks. She was seen and evaluated in ED. CT abdomen revealed indeterminate distal appendix, to r/o appendicitis. Urinalysis suggests UTI. She was admitted, evaluated by Dr. Paulson, Surgeon he determined patient does not ghave appendicitis. patient was then discharged home on Ceftin for UTI. Disposition: DC- TO HOME OR SELFCARE - Discharge Diagnoses (1) UTI (urinary tract infection) Status: Acute (2) Nausea & vomiting Status: Acute Qualifiers: Vomiting type: unspecified Vomiting Intractability: non-intractable Qualified Code(s): R11.2 - Nausea with vomiting, unspecified Core Measure Documentation - Palliative Care Palliative Care/ Comfort Measures: Not Applicable - Core Measures Any of the following diagnoses?: none Exam - Constitutional Vitals: Temp Pulse Resp BP Pulse Ox 99.0 F 100 H 18 123/73 95 08/12/19 11:56 08/12/19 11:56 08/12/19 11:56 08/12/19 11:56 08/12/19 11:56 Plan Activity: no restrictions Diet: low fat Plan of Treatment: 1.Follow up with PCP in 1 week Follow up with: MANDEEP GARCIA MD [Staff Physician] - 3-5 Days Prescriptions: cefUROXime [Ceftin] 500 mg PO Q12H 5 Days #20 tablet
[2019-08-12] MEDS ORDERED: PANTOPRAZOLE 40 MG TAB PO SCH (22:00)
== END 2019-08-12 17:57 | disposition home or self-care (01) ==
LOC: ED 12:09 → 3B-SURG 18:15 → INTOOBSV 18:15
PROVIDERS: ADMIT Internal Medicine; ATTEND Internal Medicine
DX: K37 Unspecified appendicitis (principal); R11.2 Nausea with vomiting, unspecified; E11.9 Type 2 diabetes mellitus without complications; I10 Essential (primary) hypertension; N39.0 Urinary tract infection, site not specified; F17.210 Nicotine dependence, cigarettes, uncomplicated; E78.5 Hyperlipidemia, unspecified; G43.909 Migraine, unspecified, not intractable, without status migrainosus
CPT/HCPCS: 36415; 74177; 80048; 80053; 81001; 82962; 83036; 83690; 85025; 87086; 87210; 87591; 96361; 96365; 96366; 96367; 96372; 96375; 96376; 99284; 99406; C9113; G0378; J0696; J1170; J1650; J2270; J2405; J2543; J3410; J7030; Q9967; 96374

== ENCOUNTER 2019-08-23 16:29 | Emergency (ER) | payer MEDICARE ==
--- NOTE | 2019-08-23 16:41 | Event Note ---
ED Screening Note Date of service: 08/23/19 Time: 16:36 ED Screening Note: This initial assessment/diagnostic orders/clinical plan/treatment(s) is/are subject to change based on patients health status, clinical progression and re- assessment by fellow clinical providers in the ED. Further treatment and workup at subsequent clinical providers discretion. Patient/guardian urged not to elope from the ED as their condition may be serious if not clinically assessed and managed. Initial orders include:
[2019-08-23 17:03] VITALS: BP 147/94
--- NOTE | 2019-08-23 17:04 | Event Note ---
ED Screening Note Date of service: 08/23/19 Time: 17:01 ED Screening Note: This is a 54 y.o. F. that presents to the ER with left sided abdominal pain for 1-2 weeks. - n/v/d, fever, urinary symptoms This initial assessment/diagnostic orders/clinical plan/treatment(s) is/are subject to change based on patients health status, clinical progression and re- assessment by fellow clinical providers in the ED. Further treatment and workup at subsequent clinical providers discretion. Patient/guardian urged not to elope from the ED as their condition may be serious if not clinically assessed and managed. Initial orders include: Labs and CT of abdomen
[2019-08-23 18:04] LABS: Basophils % (Auto) 0.4 % (0.0-1.8); Eosinophils # (Auto) 0.2 K/mm3 (0.0-0.4); Eosinophils % (Auto) 2.8 % (0.0-4.3); Hematocrit 41.9 % (30.3-42.9); Hemoglobin 13.9 gm/dl (10.1-14.3); Lymphocytes # (Auto) 3.3 K/mm3 (1.2-5.4); Lymphocytes % (Auto) 39.3 % (13.4-35.0); Mean Corpuscular HGB Conc 33 % (30-34); Mean Corpuscular Volume 85 fl (79-97); Monocytes # (Auto) 0.7 K/mm3 (0.0-0.8); Monocytes % (Auto) 8.8 % (0.0-7.3); Platelet Count 209 K/mm3 (140-440); Red Blood Count 4.95 M/mm3 (3.65-5.03); Red Cell Distribution Width 12.9 % (13.2-15.2)
[2019-08-23 18:19] LABS: Alanine Aminotransferase 37 units/L (7-56); Albumin 3.7 g/dL (3.9-5); BUN/Creatinine Ratio 57; Blood Urea Nitrogen 17 mg/dL (7-17); Calcium 9.9 mg/dL (8.4-10.2); Hemolysis Index 13
== END 2019-08-23 19:16 | disposition left against medical advice (07) ==
LOC: ED 16:29
DX: R42 Dizziness and giddiness (principal); R11.10 Vomiting, unspecified; R10.9 Unspecified abdominal pain; Z53.21 Procedure and treatment not carried out due to patient leaving prior to being seen by health care provider
CPT/HCPCS: 36415; 80053; 83690; 85025

== ENCOUNTER 2019-11-08 22:51 | Observation (INO) | payer MEDICARE ==
--- NOTE | 2019-11-08 23:50 | XRay Report ---
CHEST 1 VIEW INDICATION: Chest Pain. COMPARISON: 01/12/2017 FINDINGS: Support devices: None. Heart: Within normal limits. Lungs/Pleura: No acute air space or interstitial disease. Additional findings: None. IMPRESSION: 1. No acute findings. Signer Name: Raf Dowd MD Signed: 11/08/2019 11:45 PM Workstation Name: [id number]
[2019-11-09 00:17] LABS: Basophils % (Auto) 0.6 % (0.0-1.8); Eosinophils # (Auto) 0.1 K/mm3 (0.0-0.4); Eosinophils % (Auto) 1.5 % (0.0-4.3); Hematocrit 38.7 % (30.3-42.9); Hemoglobin 13.1 gm/dl (10.1-14.3); Lymphocytes # (Auto) 2.6 K/mm3 (1.2-5.4); Lymphocytes % (Auto) 36.9 % (13.4-35.0); Mean Corpuscular HGB Conc 34 % (30-34); Mean Corpuscular Volume 86 fl (79-97); Monocytes # (Auto) 0.4 K/mm3 (0.0-0.8); Platelet Count 207 K/mm3 (140-440); Red Cell Distribution Width 13.5 % (13.2-15.2)
[2019-11-09 00:41] LABS: BUN/Creatinine Ratio 40; Blood Urea Nitrogen 20 mg/dL (7-17); Calcium 9.1 mg/dL (8.4-10.2); Hemolysis Index 62
[2019-11-09] MEDS ORDERED: ASPIRIN EC 325 MG TAB PO ONE (03:56)
--- NOTE | 2019-11-09 04:27 | Emergency Department Report ---
ED Chest Pain HPI - General Chief Complaint: Dyspnea/Respdistress Stated Complaint: ABD PAIN Time Seen by Provider: 11/09/19 03:43 Source: patient Mode of arrival: Ambulatory Limitations: No Limitations - History of Present Illness Initial Comments: 54 year old female with a past medical history multiple sclerosis, hypertension, borderline diabetes, elevated cholesterol presents to the hospital complains of intermittent shortness of breath and chest tightness since last night. Symptoms initially started when lying supine and then continue conducted today with dyspnea and exertion with associated chest tightness. Patient denies nausea, vomiting, or diaphoresis. She complains of a cough productive of yellow sputum without fever. She also is having pelvic pain and dysuria and concerned about a UTI. She has never had a stress test before He does not take an aspirin daily. Patient denies recent travel history of PE/DVT. Severity scale (0 -10): 7 - Related Data Home Medications Medication Instructions Recorded Confirmed Last Taken Escitalopram 20 mg PO QHS 08/12/19 08/12/19 08/10/19 Previous Rx's Medication Instructions Recorded Last Taken Type Acetaminophen [Acetaminophen TAB] 650 mg PO Q4H PRN tablet 08/12/19 Unknown Rx cefUROXime [Ceftin] 500 mg PO Q12H 5 Days #20 tablet 08/12/19 Unknown Rx methOCARBAMOL [Robaxin TAB] 750 mg PO Q8H PRN #21 tablet 10/06/19 Unknown Rx traMADoL [Ultram] 50 mg PO Q6HR PRN #12 tablet 10/06/19 Unknown Rx Allergies Allergy/AdvReac Type Severity Reaction Status Date / Time carisoprodol [From Soma] Allergy Unknown Verified 04/21/17 21:24 diphenhydramine HCl Allergy Unknown Verified 01/13/17 01:32 [From Benadryl] ketorolac tromethamine Allergy Unknown Verified 01/13/17 01:32 [From Toradol] Heart Score - HEART Score History: Slightly suspicious EKG: Non-specific Age: 45-65 Risk factors: > 3 risk factors or hx of atherosclerotic disease Troponin: < normal limit HEART Score: 4 ED Review of Systems ROS: Stated complaint: ABD PAIN Other details as noted in HPI Comment: All other systems reviewed and negative ED Past Medical Hx - Past Medical History Previous Medical History?: Yes Hx Hypertension: Yes Hx Congestive Heart Failure: No Hx Diabetes: Yes (boderline) Hx Headaches / Migraines: Yes Hx Asthma: No Hx COPD: No Hx HIV: No Additional medical history: Multiple sclerosis, high cholesterol, Shingles6 uti - Surgical History Past Surgical History?: Yes Additional Surgical History: hysterectomy. Bladder tact - Social History Smoking Status: Never Smoker Substance Use Type: None - Medications Home Medications: Home Medications Medication Instructions Recorded Confirmed Last Taken Type Acetaminophen [Acetaminophen TAB] 650 mg PO Q4H PRN tablet 08/12/19 Unknown Rx Escitalopram 20 mg PO QHS 08/12/19 08/12/19 08/10/19 History cefUROXime [Ceftin] 500 mg PO Q12H 5 Days #20 tablet 08/12/19 Unknown Rx methOCARBAMOL [Robaxin TAB] 750 mg PO Q8H PRN #21 tablet 10/06/19 Unknown Rx traMADoL [Ultram] 50 mg PO Q6HR PRN #12 tablet 10/06/19 Unknown Rx ED Physical Exam - General Limitations: No Limitations - Other Other exam information: General: No limitations, patient is alert in no acute distress Head exam: Atraumatic, normocephalic Eyes exam: Normal appearance ENT: Moist mucous membrane Neck exam: Normal inspection, full range of motion Respiratory exam: Clear to auscultation bilateral, no wheezes, rales, crackles. Chest wall nontender Cardiovascular: Normal rate and rhythm Abdomen: Soft, nondistended, and mild suprapubic tenderness, with normal bowel sounds, no rebound, or guarding, Extremity: No deformity, no calf tenderness or leg edema Back: Normal Inspection Neurologic: Alert, oriented x3, speech clear, no gross motor or sensory deficit Psychiatric: Normal mood, affect Skin: No rash ED Course Vital Signs 11/08/19 11/09/19 23:15 02:58 Temperature 98.0 F 98.3 F Pulse Rate 108 H 92 H Respiratory 18 18 Rate Blood Pressure 145/89 130/83 O2 Sat by Pulse 95 98 Oximetry ED Medical Decision Making - Lab Data Result diagrams: 11/08/19 23:16 11/08/19 23:16 Lab Results 11/08/19 11/08/19 11/09/19 Range/Units 23:16 23:16 02:22 WBC 7.2 (4.5-11.0) K/mm3 RBC 4.50 (3.65-5.03) M/mm3 Hgb 13.1 (10.1-14.3) gm/dl Hct 38.7 (30.3-42.9) % MCV 86 (79-97) fl MCH 29 (28-32) pg MCHC 34 (30-34) % RDW 13.5 (13.2-15.2) % Plt Count 207 (140-440) K/mm3 Lymph % (Auto) 36.9 H (13.4-35.0) % [place] % (Auto) 6.0 (0.0-7.3) % Eos % (Auto) 1.5 (0.0-4.3) % Baso % (Auto) 0.6 (0.0-1.8) % Lymph # 2.6 (1.2-5.4) K/mm3 Morris # 0.4 (0.0-0.8) K/mm3 Eos # 0.1 (0.0-0.4) K/mm3 Baso # 0.0 (0.0-0.1) K/mm3 Seg Neutrophils % 55.0 (40.0-70.0) % Seg Neutrophils # 3.9 (1.8-7.7) K/mm3 Sodium 140 (137-145) mmol/L Potassium 4.0 (3.6-5.0) mmol/L Chloride 102.3 (98-107) mmol/L Carbon Dioxide 23 (22-30) mmol/L Anion Gap 19 mmol/L BUN 20 H (7-17) mg/dL Creatinine 0.5 L (0.7-1.2) mg/dL Estimated GFR > 60 ml/min BUN/Creatinine Ratio 40 % Glucose 280 H (65-100) mg/dL Hemoglobin A1c (4-6) % Calcium 9.1 (8.4-10.2) mg/dL Troponin T < 0.010 < 0.010 (0.00-0.029) ng/mL Urine Color (Yellow) Urine Turbidity (Clear) Urine pH (5.0-7.0) Ur Specific [place] (1.003-1.030) Urine Protein (Negative) mg/dL Urine Glucose (UA) (Negative) mg/dL Urine Ketones (Negative) mg/dL Urine Blood (Negative) Urine Nitrite (Negative) Urine Bilirubin (Negative) Urine Urobilinogen (<2.0) mg/dL Ur Leukocyte Esterase (Negative) Urine WBC (Auto) (0.0-6.0) /HPF Urine RBC (Auto) (0.0-6.0) /HPF U Epithel Cells (Auto) (0-13.0) /HPF Urine Bacteria (Auto) (Negative) /HPF Urine Mucus /HPF 11/09/19 11/09/19 Range/Units 05:06 05:15 WBC (4.5-11.0) K/mm3 RBC (3.65-5.03) M/mm3 Hgb (10.1-14.3) gm/dl Hct (30.3-42.9) % MCV (79-97) fl MCH (28-32) pg MCHC (30-34) % RDW (13.2-15.2) % Plt Count (140-440) K/mm3 Lymph % (Auto) (13.4-35.0) % [place] % (Auto) (0.0-7.3) % Eos % (Auto) (0.0-4.3) % Baso % (Auto) (0.0-1.8) % Lymph # (1.2-5.4) K/mm3 [place] # (0.0-0.8) K/mm3 Eos # (0.0-0.4) K/mm3 Baso # (0.0-0.1) K/mm3 Seg Neutrophils % (40.0-70.0) % Seg Neutrophils # (1.8-7.7) K/mm3 Sodium (137-145) mmol/L Potassium (3.6-5.0) mmol/L Chloride (98-107) mmol/L Carbon Dioxide (22-30) mmol/L Anion Gap mmol/L BUN (7-17) mg/dL Creatinine (0.7-1.2) mg/dL Estimated GFR ml/min BUN/Creatinine Ratio % Glucose (65-100) mg/dL Hemoglobin A1c 6.0 (4-6) % Calcium (8.4-10.2) mg/dL Troponin T (0.00-0.029) ng/mL Urine Color [place] (Yellow) Urine Turbidity Slightly-cloudy (Clear) Urine pH 6.0 (5.0-7.0) Ur Specific [place] 1.013 (1.003-1.030) Urine Protein <15 mg/dl (Negative) mg/dL Urine Glucose (UA) Neg (Negative) mg/dL Urine Ketones Neg (Negative) mg/dL Urine Blood Sm (Negative) Urine Nitrite Pos (Negative) Urine Bilirubin Neg (Negative) Urine Urobilinogen 4.0 (<2.0) mg/dL Ur Leukocyte Esterase Tr (Negative) Urine WBC (Auto) 17.0 H (0.0-6.0) /HPF Urine RBC (Auto) 3.0 (0.0-6.0) /HPF U Epithel Cells (Auto) 19.0 H (0-13.0) /HPF Urine Bacteria (Auto) 1+ (Negative) /HPF Urine Mucus Few /HPF - EKG Data -: EKG Interpreted by Me EKG shows normal: sinus rhythm, ST-T waves (no stemi) Rate: tachycardia (101) - Radiology Data Radiology results: report reviewed CHEST 1 VIEW INDICATION: Chest Pain. COMPARISON: 01/12/2017 FINDINGS: Support devices: None. Heart: Within normal limits. Lungs/Pleura: No acute air space or interstitial disease. Additional findings: None. IMPRESSION: 1. No acute findings. - Medical Decision Making Plan to admit patient to hospital for chest pain workup. Patient states she has a history of peptic disease in past. Enteric-coated aspirin ordered. hospitalist informed - Differential Diagnosis mi, unstable angina, pe, atypical chest pain Critical Care Time: No Critical care attestation.: If time is entered above; I have spent that time in minutes in the direct care of this critically ill patient, excluding procedure time. ED Disposition Clinical Impression: Chest pain, Multiple sclerosis Disposition: OP ADMIT IP TO THIS HOSP Is pt being admited?: Yes Does the pt Need Aspirin: Yes Condition: Stable Time of Disposition: 04:28 (DR Araujo/hosp)
[2019-11-09] MEDS ORDERED: ALBUTEROL 2.5 MG/3 ML NEBU IH PRN (04:54)
[2019-11-09] MEDS ORDERED: ONDANSETRON 4 MG/2 ML INJ IV PRN (04:54)
[2019-11-09] MEDS ORDERED: ACETAMINOPHEN 325 MG TAB PO PRN (04:54)
[2019-11-09] MEDS ORDERED: NITROGLYCERIN 0.4 MG TAB SUBL SL PRN (04:55)
[2019-11-09] MEDS ORDERED: MORPHINE 2 MG/1 ML INJ IV PRN (04:55)
[2019-11-09] MEDS ORDERED: SODIUM CHLORIDE 0.45% 1000 ML 1,000 ML IV SCH (05:00)
[2019-11-09] MEDS ORDERED: DEXTROSE 50% IN WATER (25GM) 50 ML SYRINGE IV PRN (05:44)
[2019-11-09 05:45] LABS: Bacteria,Urine 1+ /HPF (Negative); Bilirubin,Urine NEG (Negative); Blood,Urine SM (Negative); Color,Urine Amber (Yellow); Mucus,Urine FEW /HPF; Protein,Urine <15 mg/dL mg/dL (Negative)
--- NOTE | 2019-11-09 05:45 | History and Physical Report ---
History of Present Illness Date of examination: 11/09/19 Date of admission: 11/09/19 05:37 Chief complaint: chest pain, and discomfort with urination History of present illness: 54-year-old female with history of hypertension, borderline diabetes, multiple sclerosis, HLD who presents to [facility] ED with complaints of chest pain and shortness of breath for the past 3 days. Patient states that his been experiencing nonradiating substernal chest pain with shortness of breath for the past 3 days. Initially the chest pain was intermittent as the days progressed it became constant. She describes the pain as stiff squeezing and rates it 7/10. Admits to nausea and emesis, but denies diaphoresis. Additionally patient complains of pain/discomfort with urination for the past 5 days. Patient states that she is taking OTC AZO with some relief. Denies hematuria. Will admit as observation for further evaluation. Past History Past Medical History: hypertension, hyperlipidemia, other (Borderline diabetes, multiple sclerosis) Past Surgical History: hysterectomy, Other (Bladder tact) Social history: full code. denies: smoking, alcohol abuse Family history: no significant family history Medications and Allergies Allergies Allergy/AdvReac Type Severity Reaction Status Date / Time carisoprodol [From Soma] Allergy Unknown Verified 04/21/17 21:24 diphenhydramine HCl Allergy Unknown Verified 01/13/17 01:32 [From Benadryl] ketorolac tromethamine Allergy Unknown Verified 01/13/17 01:32 [From Toradol] Home Medications Medication Instructions Recorded Confirmed Last Taken Type Acetaminophen [Acetaminophen TAB] 650 mg PO Q4H PRN tablet 08/12/19 Unknown Rx Escitalopram 20 mg PO QHS 08/12/19 08/12/19 08/10/19 History cefUROXime [Ceftin] 500 mg PO Q12H 5 Days #20 tablet 08/12/19 Unknown Rx methOCARBAMOL [Robaxin TAB] 750 mg PO Q8H PRN #21 tablet 10/06/19 Unknown Rx traMADoL [Ultram] 50 mg PO Q6HR PRN #12 tablet 10/06/19 Unknown Rx Active Meds: Active Medications Acetaminophen (Tylenol) 650 mg PO Q4H PRN PRN Reason: Pain MILD(1-3)/Fever >100.5/JOHNSON Albuterol (Proventil) 2.5 mg IH Q3HRT PRN PRN Reason: Shortness Of Breath Aspirin (Baby Aspirin) 81 mg PO QDAY QUANG Atorvastatin Calcium (Lipitor) 40 mg PO QHS [facility] Heparin Sodium (Porcine) (Heparin) 5,000 unit SUB-Q Q12HR [facility] Sodium Chloride (Nacl 0.45% 1000 Ml) 1,000 mls @ 75 mls/hr IV DIRECT QUANG Stop: 11/09/19 12:00 Morphine Sulfate (Morphine) 2 mg IV Q4H PRN PRN Reason: Pain, Moderate (4-6) Nitroglycerin (Nitrostat) 0.4 mg SL Q5M PRN PRN Reason: Chest Pain Ondansetron HCl (Zofran) 4 mg IV Q8H PRN PRN Reason: Nausea And Vomiting Sodium Chloride (Sodium Chloride Flush Syringe 10 Ml) 10 ml IV BID QUANG Sodium Chloride (Sodium Chloride Flush Syringe 10 Ml) 10 ml IV PRN PRN PRN Reason: LINE FLUSH Review of Systems All systems: negative Cardiovascular: chest pain, shortness of breath Genitourinary Female: dysuria Exam - Physical Exam Narrative exam: Physical exam General appearance: Present: No acute distress, alert and oriented 3, well-developed, well-nourished, adult female - EENT Eyes: Present: PERRL, EOM intact ENT: hearing intact, normal dentition - Neck Neck: Present: supple, normal ROM - Respiratory Respiratory effort: Non-labored Respiratory: Clear throughout - Cardiovascular Heart rate: 92 (bpm) Rhythm: Sinus rhythm Heart Sounds: Present: S1 & S2. Absent: rub, click - Extremities Extremities: no ischemia, pulses intact, - Peripheral Assessment Peripheral Pulses: within normal limits - Abdominal General gastrointestinal: soft, non-tender, normal bowel sounds - Integumentary Integumentary: Present: warm, dry - Musculoskeletal Musculoskeletal: Able to move all extremities -Neurological Neurological: CN II-XII intact - Psychiatric Psychiatric: Appropriate for situation ,cooperative - Constitutional Vitals: Temp Pulse Resp BP Pulse Ox 98.3 F 92 H 18 130/83 98 11/09/19 02:58 11/09/19 02:58 11/09/19 02:58 11/09/19 02:58 11/09/19 02:58 HUYEN score - Huyen Score Age > 65: (0) No Aspirin use within the Past 7 Days: (0) No 3 or more CAD Risk Factors: (1) Yes 2 or more Angina events in past 24 hrs: (1) Yes Known CAD with more than 50% Stenosis: (0) No Elevated Cardiac Markers: (0) No ST Deviation Greater than 0.5mm: (0) No HUYEN Score: 2 Results - Labs CBC & Chem 7: 11/08/19 23:16 11/08/19 23:16 Labs: Laboratory Last Values WBC 7.2 K/mm3 (4.5-11.0) 11/08/19 23:16 RBC 4.50 M/mm3 (3.65-5.03) 11/08/19 23:16 Hgb 13.1 gm/dl (10.1-14.3) 11/08/19 23:16 Hct 38.7 % (30.3-42.9) 11/08/19 23:16 MCV 86 fl (79-97) 11/08/19 23:16 MCH 29 pg (28-32) 11/08/19 23:16 MCHC 34 % (30-34) 11/08/19 23:16 RDW 13.5 % (13.2-15.2) 11/08/19 23:16 Plt Count 207 K/mm3 (140-440) 11/08/19 23:16 Lymph % (Auto) 36.9 % (13.4-35.0) H 11/08/19 23:16 [place] % (Auto) 6.0 % (0.0-7.3) 11/08/19 23:16 Eos % (Auto) 1.5 % (0.0-4.3) 11/08/19 23:16 Baso % (Auto) 0.6 % (0.0-1.8) 11/08/19 23:16 Lymph # 2.6 K/mm3 (1.2-5.4) 11/08/19 23:16 [place] # 0.4 K/mm3 (0.0-0.8) 11/08/19 23:16 Eos # 0.1 K/mm3 (0.0-0.4) 11/08/19 23:16 Baso # 0.0 K/mm3 (0.0-0.1) 11/08/19 23:16 Seg Neutrophils % 55.0 % (40.0-70.0) 11/08/19 23:16 Seg Neutrophils # 3.9 K/mm3 (1.8-7.7) 11/08/19 23:16 Sodium 140 mmol/L (137-145) 11/08/19 23:16 Potassium 4.0 mmol/L (3.6-5.0) 11/08/19 23:16 Chloride 102.3 mmol/L (98-107) 11/08/19 23:16 Carbon Dioxide 23 mmol/L (22-30) 11/08/19 23:16 Anion Gap 19 mmol/L 11/08/19 23:16 BUN 20 mg/dL (7-17) H 11/08/19 23:16 Creatinine 0.5 mg/dL (0.7-1.2) L 11/08/19 23:16 Estimated GFR > 60 ml/min 11/08/19 23:16 BUN/Creatinine Ratio 40 % 11/08/19 23:16 Glucose 280 mg/dL (65-100) H 11/08/19 23:16 Hemoglobin A1c 6.0 % (4-6) 11/09/19 05:06 Calcium 9.1 mg/dL (8.4-10.2) 11/08/19 23:16 Troponin T < 0.010 ng/mL (0.00-0.029) 11/09/19 02:22 - Imaging and Cardiology Imaging and Cardiology: CXR: FINDINGS: Support devices: None. Heart: Within normal limits. Lungs/Pleura: No acute air space or interstitial disease. Additional findings: None. IMPRESSION: 1. No acute findings. Assessment and Plan Assessment and plan: 54-year-old female with history of hypertension, borderline diabetes, multiple sclerosis, HLD who presents to [facility] ED with complaints of chest pain and shortness of breath for the past 3 days, and dysuria x5 days. Acute Chest Pain -Initiate chest pain protocol -Continuous telemetry monitoring -Continue supportive care -Pain mgmt -Troponin negative x2 , will continue to trend -EKG unrevealing for acute ischemic abnormalities -On ASA and Statin -Echo and Lexiscan pending HTN -Monitor BP -Resume home hypertensive meds Hyperglycemia -History of borderline diabetes -POC BG monitoring -SSI coverage prn -HgbA1C pending HLD -on Statin R/O UTI -Complains of dysuria -No leukocytosis -UA pending -We will start IV ABX if UA positive DVT PPX -On Heparin Advance Directives: No VTE prophylaxis?: Chemical Plan of care discussed with patient/family: Yes
[2019-11-09] MEDS ORDERED: MORPHINE 2 MG/1 ML INJ ONE (06:10)
[2019-11-09] MEDS ORDERED: ONDANSETRON 4 MG/2 ML INJ ONE (06:32)
[2019-11-09 06:34] LABS: Chol/HDL Ratio 2.89 %
[2019-11-09] MEDS: INSULIN LISPRO 100 UNIT/ML SUB-Q SCH ×2 (06:43→13:00)
[2019-11-09] MEDS ORDERED: REGADENOSON 0.4 MG/5 ML INJ IV ONE ×2 (07:32→08:25)
[2019-11-09 09:54] VITALS: BP 110/69
[2019-11-09] MEDS ORDERED: HEPARIN 5,000 UNIT/1 ML VIAL SUB-Q SCH (10:00)
--- NOTE | 2019-11-09 14:37 | Discharge Summary ---
Providers - Providers Date of Admission: 11/09/19 05:37 Attending physician: DARLEEN VILLEDA MD Primary care physician: SYRUP BLENDER Hospitalization Reason for admission: chest pain Condition: Stable Hospital course: 54-year-old female with history of hypertension, borderline diabetes, multiple sclerosis, HLD who presents to [facility] ED with complaints of chest pain and shortness of breath for the past 3 days. Patient states that his been experiencing nonradiating substernal chest pain with shortness of breath for the past 3 days. Initially the chest pain was intermittent as the days progressed it became constant. She describes the pain as stiff squeezing and rates it 7/10. Admits to nausea and emesis, but denies diaphoresis. Additionally patient complains of pain/discomfort with urination for the past 5 days. Patient states that she is taking OTC AZO with some relief. Denies hematuria. Will admit as observation for further evaluation. stress test negative no further chest pain no nausea or vomiting reports recurrent UTI Symptoms WILL FOLLOW WITH PCP Recurrent chest pain FINDINGS: Support devices: None. Heart: Within normal limits. Lungs/Pleura: No acute air space or interstitial disease. Additional findings: None. IMPRESSION: 1. No acute findings. Acute Chest Pain -recurrent, secondary to costochondritis -EKG unrevealing for acute ischemic abnormalities -On ASA and Statin HTN -Monitor BP -Resume home hypertensive meds Hyperglycemia -History of borderline diabetes -POC BG monitoring -SSI coverage prn -HgbA1C pending HLD -on Statin dysuria Disposition: DC-01 TO HOME OR SELFCARE Time spent for discharge: 35 mins Core Measure Documentation - Palliative Care Palliative Care/ Comfort Measures: Not Applicable - Core Measures Any of the following diagnoses?: none Exam - Constitutional Vitals: Temp Pulse Resp BP Pulse Ox 98.3 F 67 16 110/69 98 11/09/19 02:58 11/09/19 11:23 11/09/19 11:23 11/09/19 09:07 11/09/19 11:23 General appearance: Present: no acute distress, well-nourished - EENT Eyes: Present: PERRL ENT: clear oral mucosa, dentition normal - Neck Neck: Present: supple, normal ROM - Respiratory Respiratory effort: normal Respiratory: bilateral: CTA - Cardiovascular Rhythm: regular Heart Sounds: Present: S1 & S2. Absent: systolic murmur, diastolic murmur - Extremities Extremities: no ischemia, pulses intact, pulses symmetrical, No edema, normal temperature, Full ROM Peripheral Pulses: within normal limits - Abdominal General gastrointestinal: Present: soft, non-tender, non-distended, normal bowel sounds - Integumentary Integumentary: Present: clear, warm - Musculoskeletal Musculoskeletal: strength equal bilaterally - Psychiatric Psychiatric: appropriate mood/affect, intact judgment & insight, memory intact - Neurologic Neurologic: CNII-XII intact, moves all extremities - Allied Health Allied health notes reviewed: nursing Plan Activity: advance as tolerated, fall precautions Diet: low fat Special Instructions: record daily weights, record daily BP diary Additional Instructions: follow with [facility] doctor Follow up with: PRIMARY CARE, [Primary Care Provider] - 7 Days Prescriptions: Aspirin [Aspirin BABY CHEW TAB] 81 mg PO QDAY #30 tab.chew cefUROXime [Ceftin] 500 mg PO Q12H 6 Days #20 tablet
--- NOTE | 2019-11-09 19:23 | Treadmill Report ---
LEXISCAN STRESS TEST REPORT REASON FOR STUDY: Chest pain. STRESS TEST PROTOCOL: The patient received 0.4 mg of Lexiscan intravenously over 10 seconds. Tc-99m Tetrofosmin was subsequently injected. Baseline ECG: normal sinus rhythm. Lexiscan ECG: no ischemic changes. No chest pain. No arrhythmias. IMPRESSION: Electrocardiographically negative stress test. Nuclear imaging report to follow. JOB# [id number] RYAN/LUCY OBREGON
--- NOTE | 2019-11-09 21:58 | Treadmill Report ---
THALLIUM REPORT REASON FOR STUDY: Chest pain. IMAGING PROTOCOL: The patient received 10 mCi of Tc-99m Tetrofosmin for rest imaging, and 28 mCi of technetium Tetrofosmin for stress imaging. Imaging for all procedures was completed 30-90 minutes following the initial injection of Technetium 99m Tetrofosmin. SPECT imaging in the 180 degree arc was performed in the right anterior oblique projection. Computerized reconstruction of the images was performed for analysis. NUCLEAR IMAGING RESULTS: Normal left ventricular cavity size with no change from stress to rest. Distribution of radionuclide within the left ventricle revealed normal myocardial photon uptake with stress and rest imaging. Gated SPECT imaging revealed hyperdynamic global left ventricular systolic function with no significant wall motion abnormalities. The calculated left ventricular ejection fraction is 81%. IMPRESSION: Normal stress and rest myocardial perfusion imaging. Hyperdynamic global left ventricular systolic function, EF 81%. No evidence of significant stress-induced ischemia or prior infarction. JOB# [id number] RYAN/LUCY
[2019-11-10] MEDS ORDERED: ASPIRIN 81 MG TAB CHEW PO SCH (10:00)
== END 2019-11-09 18:26 | disposition home or self-care (01) ==
LOC: ED 22:51 → INTOOBSV 11-09 05:37 → 4A 11-09 05:37
PROVIDERS: ADMIT Internal Medicine Geriatric Medicine; ATTEND Internal Medicine
DX: R07.89 Other chest pain (principal); G35 Multiple sclerosis; I10 Essential (primary) hypertension; R73.9 Hyperglycemia, unspecified; G43.909 Migraine, unspecified, not intractable, without status migrainosus; E78.5 Hyperlipidemia, unspecified; R82.998 Other abnormal findings in urine; Z90.710 Acquired absence of both cervix and uterus
CPT/HCPCS: 36415; 71045; 78452; 80048; 80061; 81001; 83036; 84484; 85025; 87086; 93005; 93010; 93017; 93306; 96374; 96375; 99284; A9502; G0378; J1644; J2270; J2405; J2785